=== PATIENT | male | born 1945 | race African-American/Black ===

== ENCOUNTER 2019-10-10 02:19 | Inpatient (IN) | payer MEDICARE, MEDICAID ==
[~2019-10-10] VITALS: Ht 160 cm; Wt 48.1 kg
[~2019-10-10 02:19] MED LIST: HYDROCORTISONE-30 GM TOPIC; LATANOPROST 0.7.5 ML OP; LUMIGAN2.5 ML BOTH EYES; TRUSOPT10 ML BOTH EYES
--- NOTE | 2019-10-10 02:37 | Emergency Room Report ---
History of Present Illness General Chief Complaint: Abnormal Labs Source: Patient, PMD Present Illness HPI This is 74-year-old male with a history of hepato-cellular carcinoma. Unknown staging. He also has history of HIV. Patient does not take any medication. Patient will was last 2 outpatient follow-up for year. He presents with chief complaint of weakness and hypoxia. He saw Dr. Rubio yesterday at 2 PM. He was hypoxic on room air at 83 percentile. He also complained of weakness and weight loss of 11 pounds in last week. Patient said he was short of breath then but no longer short of breath here. He had recent labs done that showed mild anemia and increasing AFP. He was told to come here for admission. Patient complained of weakness and weight loss. No nausea no vomiting. No diarrhea. Denies any fever chills but denies any cough or congestion. They made it better. Nothing made it worse. Allergies: Coded Allergies: UNABLE TO ASSESS (Unverified , 06/11/19) pt unable to remember COVID-19 Screening Contact w/high risk pt: No Recent Travel to affected area: No Experienced COVID-19 symptoms?: No Patient History Past Medical History: see triage record, old chart reviewed, HIV Past Surgical History: other Pertinent Family History: none Social History: Denies: smoking Immunizations: other Reviewed Nursing Documentation: PMH: Agreed; PSxH: Agreed Review of Systems Constitutional: Reports: weakness Eye: Denies: eye pain, blurred vision ENT: Denies: ear pain, nose congestion, throat swelling Respiratory: Denies: cough, shortness of breath Cardiovascular: Denies: chest pain, palpitations Gastrointestinal: Denies: abdominal pain, diarrhea, nausea, vomiting Musculoskeletal: Denies: back pain, joint pain Skin: Denies: rash Neurological: Denies: headache, numbness Endocrine: Denies: increased thirst, increased urine Hematologic/Lymphatic: Denies: easy bruising All Other Systems: negative except mentioned in HPI Physical Exam Vitals unremarkable Sp02 EP Interpretation: reviewed, normal General Appearance: no apparent distress, alert, thin Head: normocephalic, atraumatic Eyes: bilateral eye PERRL, bilateral eye EOMI ENT: hearing grossly normal, normal pharynx Neck: full range of motion, supple, no meningismus Respiratory: chest non-tender, lungs clear, normal breath sounds Cardiovascular #1: regular rate, rhythm, no murmur Gastrointestinal: normal bowel sounds, non tender, no mass, no organomegaly, no bruit, non-distended Musculoskeletal: back normal, normal range of motion, gait/station normal Psychiatric: mood/affect normal Medical Decision Making Diagnostic Impression: Primary Impression: Hepatocellular adenoma Additional Impression: Failure to thrive in adult ER Course Patient presents with weakness and weight loss. This is probably secondary to his recurrent of liver cancer. According to the labs from his primary care doctor's office, his AFP is increasing. CT here showed a liver mass but no mets to the lung. No pulmonary believes him. He is not hypoxic here. I discussed the case with Dr. Rubio who wanted pt to be admitted. Pt's insurance IPA approved for admission here. I discussed case with Dr. Pelaez who will admit. Rhythm Strip Diag. Results EP Interpretation: yes Rate: 88 Rhythm: NSR, no PVC's, no ectopy CT/MRI/US Diagnostic Results CT/MRI/US Diagnostic Results : Imaging Test Ordered: CT chest, abdomen and pelvis Impression Read by radiologist. CT chest showed no embolism. No acute abnormality. Severe osteopenia. Otherwise negative. CT abdomen pelvis showed liver mass measuring 3.6 and 3.7 respectively. Status: unchanged Disposition: ADMITTED INPATIENT Condition: Serious Referrals: ARNOLD HERNANDEZ (PCP) Kolton Osorio MD October 10, 2019 02:37
[2019-10-10] MEDS ORDERED: VITAMIN D32400 UNIT/ PO (02:40)
[2019-10-10] MEDS ORDERED: COMPLERA TABLE1 EACH ORAL (02:40)
[2019-10-10] MEDS ORDERED: TIVICAY50 MG ORAL (02:40)
[2019-10-10] MEDS ORDERED: VITAMIN C500 M1 ORAL (02:40)
[2019-10-10] MEDS ORDERED: VITAMIN B-12500 MC2 PO (02:40)
[2019-10-10] MEDS ORDERED: FERROUS SULFAT325 MG ORAL (02:40)
[2019-10-10 02:44] VITALS: BP 115/72
[2019-10-10 03:09] LABS: ALANINE AMINOTRANSFERASE 24 U/L (12-78); ALBUMIN 3.6 G/DL (3.4-5.0); ALBUMIN/GLOBULIN RATIO 0.7 (1.0-2.7); ALKALINE PHOSPHATASE 81 U/L (46-116); ANION GAP 7 mmol/L (5-15); BILIRUBIN,TOTAL 0.6 MG/DL (0.2-1.0); BLOOD UREA NITROGEN 19 mg/dL (7-18); CALCIUM 9.7 MG/DL (8.5-10.1); CARBON DIOXIDE 31 MMOL/L (21-32); CHLORIDE 103 MMOL/L (98-107); CREATININE 1.5 MG/DL (0.55-1.30); POTASSIUM 4.1 MMOL/L (3.5-5.1); SODIUM 141 MMOL/L (136-145)
[2019-10-10 03:10] LABS: ASPARTATE AMINO TRANSFERASE 47 U/L (15-37); BASOPHILS % (AUTO) 1.6 % (0.0-2.0); EOSINOPHILS % (AUTO) 3.3 % (0.0-3.0); HEMATOCRIT 38.5 % (42.0-52.0); HEMOGLOBIN 12.9 G/DL (14.2-18.0); LYMPHOCYTES % (AUTO) 32.3 % (20.0-45.0); MEAN CORPUSCULAR VOLUME 90 FL (80-99); MONOCYTES % (AUTO) 8.6 % (1.0-10.0); NEUTROPHILS % (AUTO) 54.2 % (45.0-75.0); PLATELET COUNT 151 K/UL (150-450); RED BLOOD COUNT 4.26 M/UL (4.70-6.10); RED CELL DISTRIBUTION WIDTH 15.6 % (11.6-14.8); WHITE BLOOD COUNT 4.3 K/UL (4.8-10.8)
[2019-10-10 08:06] VITALS: BP 121/78
[2019-10-10] MEDS: Vitamin B-12 500mcg tab ORAL SCH (08:22)
[2019-10-10] MEDS: Ascorbic Acid 500mg tab ORAL SCH (08:22)
[2019-10-10] MEDS: Dorzolamide 2% 10ml Btl BOTH EYES SCH ×3 (08:22→18:00)
--- NOTE | 2019-10-10 08:38 | Diagnostic Imaging Report ---
EXAM: CT Chest With Intravenous Contrast CLINICAL HISTORY: chest pain for four days TECHNIQUE: Axial computed tomography images of the chest with intravenous contrast. CTDI is 74 mGy and DLP is 289 mGy-cm. One or more of the following dose reduction techniques were used: automated exposure control, adjustment of the mA and/or kV according to patient size, use of iterative reconstruction technique. COMPARISON: No relevant prior studies available. FINDINGS: Lungs: Unremarkable. No mass. No consolidation. Pleural space: Unremarkable. No pneumothorax. No significant effusion. Heart: Unremarkable. No cardiomegaly. No significant pericardial effusion. Bones/joints: Severe osteopenia. No acute fracture. No dislocation. Soft tissues: Unremarkable. Vasculature: No pulmonary embolism. No thoracic aortic aneurysm. Lymph nodes: Unremarkable. No enlarged lymph nodes. Other findings: No acute abnormality identified to account for patient presentation. IMPRESSION: 1. No pulmonary embolism. 2. No acute abnormality identified to account for patient presentation. 3. Severe osteopenia. 4. Otherwise unremarkable study. EXAM: CT Abdomen and Pelvis With Intravenous Contrast CLINICAL HISTORY: chest pain for four days TECHNIQUE: Axial computed tomography images of the abdomen and pelvis with intravenous contrast. CTDI is 74 mGy and DLP is 289 mGy-cm. One or more of the following dose reduction techniques were used: automated exposure control, adjustment of the mA and/or kV according to patient size, use of iterative reconstruction technique. Coronal and sagittal reformatted images were created and reviewed. COMPARISON: No relevant prior studies available. FINDINGS: Lung bases: Unremarkable. No mass. No consolidation. ABDOMEN: Liver: Hepatic segment VII mass with adjacent hypodense potentially subcapsular location somewhat indeterminate mass measuring 3.6 and 3.7 cm respectively. Recommend MRI abdomen without and with IV contrast to further characterize hepatic masses. Gallbladder and bile ducts: Unremarkable. No calcified stones. No ductal dilation. Pancreas: Unremarkable. No mass. No ductal dilation. Spleen: Unremarkable. No splenomegaly. Adrenals: Unremarkable. No mass. Kidneys and ureters: Unremarkable. No solid mass. No hydronephrosis. Stomach and bowel: Large colonic fecal burden and small bowel fecal contents, which could be incidental or could represent a manifestation of slow intestinal transit. This could be a cause for pain. No mucosal thickening. PELVIS: Appendix: No findings to suggest acute appendicitis. Bladder: Urinary bladder distention and wall thickening. This could be incidental, correlate clinically to exclude infectious or inflammatory cystitis. Reproductive: Unremarkable as visualized. ABDOMEN and PELVIS: Intraperitoneal space: Unremarkable. No free air. No significant fluid collection. Bones/joints: Severe osteopenia. No acute fracture. No dislocation. Soft tissues: Unremarkable. Vasculature: Atherosclerotic vascular disease. No abdominal aortic aneurysm. Lymph nodes: Unremarkable. No enlarged lymph nodes. IMPRESSION: 1. Urinary bladder distention and wall thickening. This could be incidental, correlate clinically to exclude infectious or inflammatory cystitis. 2. Large colonic fecal burden and small bowel fecal contents, which could be incidental or could represent a manifestation of slow intestinal transit. This could be a cause for pain. 3. Hepatic segment VII mass with adjacent hypodense potentially subcapsular location somewhat indeterminate mass measuring 3.6 and 3.7 cm respectively. 4. Recommend MRI abdomen without and with IV contrast to further characterize hepatic masses. 5. Recommend correlation with age appropriate screening exams. 6. Severe osteopenia.
[2019-10-10 12:00] VITALS: BP 116/73
[2019-10-10] MEDS: 1/2NS w/KCl 20mEq 1000ml 1,000 ML IV SCH (14:36)
[2019-10-10 16:10] VITALS: BP 125/83
[2019-10-10] MEDS: DOLUTEGRAVIR SODIUM 50 MG ORAL SCH (16:57)
[2019-10-10] MEDS: DESCOVY 200MG/25MG ORAL SCH (17:55)
--- NOTE | 2019-10-10 18:30 | History and Physical Report ---
DATE OF ADMISSION: 10/10/2019 HISTORY OF PRESENT ILLNESS: This is a 74-year-old male with a history of HIV positivity. He also has known hepatocellular carcinoma. Patient admitted to the hospital with failure to thrive. He is weak and hypoxic. He was seen by his primary care physician, noted to be hypoxic. He was advised admission. Patient reports significant weight loss. PAST MEDICAL HISTORY: Notable for HIV positivity, history of hepatocellular carcinoma. SOCIAL HISTORY: No history of alcohol or tobacco usage. HOME MEDICATIONS: Reviewed and reconciled in the chart. REVIEW OF SYSTEMS: Denies any headaches, hematemesis, melena, or hematochezia. Admits to having unspecified weight loss. PHYSICAL EXAMINATION: GENERAL: Reveals a 74-year-old male, appearing cachectic. VITAL SIGNS: Blood pressure is 116/70, heart rate is 74, respirations 20, he is afebrile. CHEST: Clear breath sounds. ABDOMEN: Soft. NEUROLOGIC: Nonfocal. LABORATORY DATA: Lab testing shows white count 4.3, hemoglobin 12.9. Creatinine 1.5. AST 47. IMAGING STUDIES: A CT of the chest, abdomen, pelvis was obtained overnight, which shows unremarkable pulmonary parenchyma, severe osteopenia. There is no pulmonary embolism. He has evidence of colonic burden with stool. There is evidence of a hepatic mass. IMPRESSION: 1. Failure to thrive. 2. HIV. 3. Hepatocellular carcinoma. 4. Constipation. DISCUSSION: Admit to the hospital. Consult Hematology-Oncology as well as GI. Continue current medications and care. Provide IV hydration and diet. We will follow carefully. Efrem Pelaez M.D. DR: ANAM JOB#: [id number] CC:
[2019-10-10 20:00] VITALS: BP 110/70
[2019-10-10] MEDS: Latanoprost 0.005% Opth 2.5ml Soln BOTH EYES SCH (20:28)
[2019-10-11 04:00] VITALS: BP 118/74
[2019-10-11] MEDS ORDERED: Gadavist 7.5mMol/7.5ml vial IV PRN (06:11)
[2019-10-11 08:00] VITALS: BP 121/77
[2019-10-11] MEDS: Dorzolamide 2% 10ml Btl BOTH EYES SCH ×3 (08:17→18:17)
[2019-10-11] MEDS: DOLUTEGRAVIR SODIUM 50 MG ORAL SCH (08:18)
[2019-10-11] MEDS: DESCOVY 200MG/25MG ORAL SCH (08:18)
--- NOTE | 2019-10-11 10:45 | Pulmonology Progress Note ---
Subjective Interval Events: Feeling better Constitutional: Reports: no symptoms HEENT: Repors: no symptoms Respiratory: Reports: no symptoms Cardiovascular: Reports: no symptoms Gastrointestinal/Abdominal: Reports: no symptoms Allergies: Coded Allergies: No Known Allergies (Unverified , 10/10/19) Objective Last 24 Hour Vital Signs Date Time Temp Pulse Resp B/P (MAP) Pulse Ox O2 Delivery O2 Flow Rate FiO2 10/11/19 09:00 Room Air 10/11/19 08:00 98.1 65 20 121/77 (92) 97 10/11/19 04:00 97.8 61 18 118/74 (89) 100 10/10/19 20:07 Room Air 10/10/19 20:00 98.0 66 18 110/70 (83) 97 10/10/19 16:10 98.0 64 20 125/83 (97) 99 10/10/19 12:00 98.2 74 19 116/73 (87) 99 Intake and Output 10/10/19 10/11/19 18:59 06:59 Intake Total 700 ml Balance 700 ml Intake Oral 500 ml IV Total 200 ml # Voids 3 # Bowel Movements 1 General Appearance: no acute distress HEENT: normocephalic Respiratory: chest wall non-tender Cardiovascular: normal peripheral pulses Abdomen: normal bowel sounds Current Medications Medications (Trade) Dose Ordered Sig/Lia Route PRN Reason Start Time Stop Time Status Last Admin Dose Admin Acetaminophen (Tylenol) 650 mg Q6H PRN ORAL For Headache 10/10/19 04:00 11/09/19 03:59 Acetaminophen (Tylenol) 650 mg Q6H PRN ORAL Temp >100.5 10/10/19 04:00 11/09/19 03:59 Ascorbic Acid (Vitamin C) 500 mg DAILY ORAL 10/10/19 09:00 11/09/19 08:59 10/10/19 08:22 Cyanocobalamin (Vitamin B-12) 500 mcg DAILY ORAL 10/10/19 09:00 11/09/19 08:59 10/10/19 08:22 Dorzolamide HCl (Trusopt) 1 drop TID BOTH EYES 10/10/19 09:00 11/09/19 08:59 10/11/19 08:17 Ferrous Sulfate (Feosol) 325 mg DAILY ORAL 10/10/19 09:00 01/08/20 08:59 10/10/19 08:22 Gadobutrol (Gadavist) 7.5 mmol ONCE PRN IV RADIOLOGY 10/11/19 06:11 10/11/19 23:59 Latanoprost (Xalatan) 1 drop BEDTIME BOTH EYES 10/10/19 21:00 11/09/19 20:59 Patient Own Medication (Patient's Own Med) 1 ea DAILY ORAL 10/10/19 16:00 11/09/19 15:59 10/11/19 08:18 Patient Own Medication (Patient's Own Med) 1 ea DAILY ORAL 10/10/19 18:00 11/09/19 17:59 10/11/19 08:18 Sodium 1,000 ml @ 50 mls/hr Q20H IV 10/10/19 14:30 11/09/19 14:29 10/10/19 14:36 Vitamin D (Vitamin D) 2,000 intlu DAILY ORAL 10/11/19 09:00 11/10/19 08:59 Assessment/Plan Assessment/Plan IMPRESSION: 1. Failure to thrive. 2. HIV. 3. Hepatocellular carcinoma. 4. Constipation. DISCUSSION: Await Hematology-Oncology consultation as well as GI. Continue current medications and care. Provide IV hydration and diet. I will follow carefully. MRI abd today Calorie count Efrem Pelaze M.D. Efrem Pelaez MD October 11, 2019 10:45
[2019-10-11] MEDS: Ascorbic Acid 500mg tab ORAL SCH (10:59)
[2019-10-11] MEDS: 1/2NS w/KCl 20mEq 1000ml 1,000 ML IV SCH (10:59)
[2019-10-11] MEDS: Vitamin B-12 500mcg tab ORAL SCH (10:59)
[2019-10-11] MEDS: Vitamin D 1000 IU Tab ORAL SCH (11:00)
[2019-10-11 12:00] VITALS: BP 131/83
--- NOTE | 2019-10-11 12:04 | Consultation ---
History of Present Illness General Chief Complaint: Abnormal Labs Present Illness Allergies: Coded Allergies: No Known Allergies (Unverified , 10/10/19) Medication History Scheduled Ascorbic Acid* (Vitamin C*), 500 MG ORAL DAILY, (Reported) Cholecalciferol (Vitamin D3) (Vitamin D3), 1,000 UNIT PO DAILY, (Reported) Cyanocobalamin (Vitamin B-12) (Vitamin B-12), 500 MCG PO DAILY, (Reported) Dolutegravir Sodium (Tivicay), 50 MG ORAL DAILY, (Reported) Dorzolamide Hcl* (Trusopt*), 1 DROP BOTH EYES TID, (Reported) Emtricitab/Rilpivirine/Tenofov (Complera Tablet), 1 TAB ORAL DAILY, (Reported) Ferrous Sulfate* (Ferrous Sulfate*), 325 MG ORAL DAILY, (Reported) Miscellaneous Medications Latanoprost/Pf (Latanoprost 0.005% Eye Drop), 7.5 ML OP, (Reported) Discontinued Medications Bimatoprost (Lumigan), 1 DROP BOTH EYES DAILY, (Reported) Discontinued Reason: MD discontinued med Hydrocortisone/Aloe (Hydrocortisone/Aloe 1% Cream*), 1 APPLIC TOPIC Q6H PRN for Itching Discontinued Reason: Pt had allergic rxn Patient History Healthcare decision maker Resuscitation status Advanced Directive on File Physical Exam Last 24 Hour Vital Signs Date Time Temp Pulse Resp B/P (MAP) Pulse Ox O2 Delivery O2 Flow Rate FiO2 10/11/19 09:00 Room Air 10/11/19 08:00 98.1 65 20 121/77 (92) 97 10/11/19 04:00 97.8 61 18 118/74 (89) 100 10/10/19 20:07 Room Air 10/10/19 20:00 98.0 66 18 110/70 (83) 97 10/10/19 16:10 98.0 64 20 125/83 (97) 99 Intake and Output 10/10/19 10/11/19 19:00 07:00 Intake Total 700 ml Balance 700 ml Intake Oral 500 ml IV Total 200 ml # Voids 3 # Bowel Movements 1 Height (Feet): 5 Height (Inches): 3.00 Weight (Pounds): 105 Medications Current Medications Medications (Trade) Dose Ordered Sig/Lia Route PRN Reason Start Time Stop Time Status Last Admin Dose Admin Acetaminophen (Tylenol) 650 mg Q6H PRN ORAL For Headache 10/10/19 04:00 11/09/19 03:59 Acetaminophen (Tylenol) 650 mg Q6H PRN ORAL Temp >100.5 10/10/19 04:00 11/09/19 03:59 Ascorbic Acid (Vitamin C) 500 mg DAILY ORAL 10/10/19 09:00 11/09/19 08:59 10/11/19 10:59 Cyanocobalamin (Vitamin B-12) 500 mcg DAILY ORAL 10/10/19 09:00 11/09/19 08:59 10/11/19 10:59 Dorzolamide HCl (Trusopt) 1 drop TID BOTH EYES 10/10/19 09:00 11/09/19 08:59 10/11/19 08:17 Ferrous Sulfate (Feosol) 325 mg DAILY ORAL 10/10/19 09:00 01/08/20 08:59 10/11/19 11:00 Gadobutrol (Gadavist) 7.5 mmol ONCE PRN IV RADIOLOGY 10/11/19 06:11 10/11/19 23:59 Latanoprost (Xalatan) 1 drop BEDTIME BOTH EYES 10/10/19 21:00 11/09/19 20:59 Patient Own Medication (Patient's Own Med) 1 ea DAILY ORAL 10/10/19 16:00 11/09/19 15:59 10/11/19 08:18 Patient Own Medication (Patient's Own Med) 1 ea DAILY ORAL 10/10/19 18:00 11/09/19 17:59 10/11/19 08:18 Sodium 1,000 ml @ 50 mls/hr Q20H IV 10/10/19 14:30 11/09/19 14:29 10/11/19 10:59 Vitamin D (Vitamin D) 2,000 intlu DAILY ORAL 10/11/19 09:00 11/10/19 08:59 10/11/19 11:00 Assessment/Plan Assessment/Plan: Oncology Consultaiton ZEINAB MOTA: Efrem Pelaez C: HCC DOS 10/11/2019 HPI This is 74-year-old male with a history of hepato-cellular carcinoma. Unknown staging. He also has history of HIV. Patient does not take any medication. Patient will was last 2 outpatient follow-up for year. He presents with chief complaint of weakness and hypoxia. He saw Dr. Rubio yesterday at 2 PM. He was hypoxic on room air at 83 percentile. He also complained of weakness and weight loss of 11 pounds in last week. Patient said he was short of breath then but no longer short of breath here. He had recent labs done that showed mild anemia and increasing AFP. He was told to come here for admission. Patient complained of weakness and weight loss. No nausea no vomiting. No diarrhea. Denies any fever chills but denies any cough or congestion. They made it better. Nothing made it worse. At this time have ordered for mri and and afp as well, have dw ER. Allergies: UNABLE TO ASSESS (Unverified , 06/11/19) pt unable to remember COVID-19 Screening Contact w/high risk pt: No Recent Travel to affected area: No Experienced COVID-19 symptoms?: No Past Medical History: see triage record, old chart reviewed, HIV Past Surgical History: other Pertinent Family History: none Social History: Denies: smoking Immunizations: other Reviewed Nursing Documentation: PMH: Agreed; PSxH: Agreed ROS (review of systems): Constitutional: No fever, no chills, no night sweats, no fatigue Skin: No rashes, lumps, itchiness, dryness HEENT: No ALICEA, ear ache, visual changes, double vision, nosebleeds Breasts: No lumps, pain, discharge Pulmonary: No cough, sputum, shortness of breath, coughing up blood Cardiovascular: No chest pain, tightness, palpitations, syncope, PND GI: No nausea, vomiting, diarrhea, melena, hematochezia, change in appetite, : No dysuria, frequency, urgency, urinary incontinence, foamy urine Musculoskeletal: No joint swelling or muscle pain, trauma, back pain Neurologic: No dizziness, fainting, seizures, changes in smell or taste Psychiatric: No nervousness, stress, or depression, anxiety, hallucinations Endocrine: No weight change, heat or cold intolerance, tremor, insomnia Physical Exam: Vitals: reviewed General: NAD HEENT: nc, at Neck: supple Chest: clear breath sounds bilaterally Cardiovascular: RRR, no s3, s4 Abdomen: soft, nontender, nd Extremities: no cce, normal range of motion Neuro: alert and oriented Labs reviewed Imaging: reviewed Assessment and Recs # Hepatocellular carcinoma -- with a increasing afp recently --> obtain outside medical information in re to patients hcc --> obtain imaging of the abd to confirm the mass --> AFP has been ordered # Failure to thrive in adult --> likely due to ocmination of malignancy and potential rx --> r/o infectious etiology --> nutirtional support --> again needs outpatient management of malignancy, has had significant weight loss recenyly # Leukopenia very likely related to liver involvement --> hep and hiv ordered --> imaging abd # Anemia of chronic disease # Dvt ppx scds The timing of this note does not necessarily reflect the time of the patient was seen. Greatly appreciate consultation. Romaine Eirckson MD October 11, 2019 12:04
[2019-10-11 16:00] VITALS: BP 115/70
--- NOTE | 2019-10-11 17:00 | Consultation ---
DATE OF CONSULTATION: 10/11/2019 INFECTIOUS DISEASES CONSULTATION CONSULTING PHYSICIAN: Gianni Garg MD REFERRING PHYSICIAN: Efrem Pelaez MD. REASON FOR CONSULTATION: HIV and possible sepsis. HISTORY OF PRESENTING ILLNESS: This is a 74-year-old gentleman with history of HIV, hepatocellular carcinoma status post chemotherapy, who comes in because of weakness and failure to thrive. There was a concern for cholangitis and an Infectious Diseases consultation has been obtained for antibiotics. PAST MEDICAL HISTORY: 1. History of HIV. 2. History of hepatocellular carcinoma. MEDICATIONS: As an inpatient, he is on vitamin D, , Xalatan drops, sodium, ascorbic acid, Trusopt, ferrous sulfate, cyanocobalamin, Tylenol. ALLERGIES: No known drug allergies. SOCIAL HISTORY: He used to be a smoker. He does not smoke anymore. He drinks alcohol socially. He smokes marijuana. FAMILY HISTORY: Unknown. REVIEW OF SYSTEMS: RESPIRATORY: No fever, chills, cough, shortness of breath, or chest pain. CARDIAC: No chest pain. No palpitation. No dizziness. No syncope. GASTROINTESTINAL: No nausea. No vomiting. No abdominal pain. No diarrhea. PHYSICAL EXAMINATION: VITAL SIGNS: Temperature of 98.1, T-max of 98.1, pulse of 65, respiratory rate 22, blood pressure 121/77, O2 saturation of 97%. HEENT: Pupils equally reactive to light and accommodation. Mouth appears clean without thrush. NECK: Supple. No adenopathy. No JVD. CARDIOVASCULAR: Regular rate and rhythm. No murmurs. LUNGS: Clear to auscultation bilaterally. No crackles. No wheezes. ABDOMEN: Soft and nontender. No organomegaly. EXTREMITIES: No cyanosis, no clubbing, no edema. LABORATORY AND DIAGNOSTIC DATA: White count 4.3, hemoglobin 12.9, hematocrit 38.5, MCV 90, platelet count of 151, neutrophils of 54.2. Sodium 141, potassium 4.1, chloride 103, bicarb 31, BUN 19, creatinine 1.5, glucose 101, calcium 9.7. Total bilirubin 0.6, AST 47, ALT 24, alkaline phosphatase 81, total protein 8.5, albumin 3.6. CT chest, abdomen and pelvis showing no pulmonary embolism, otherwise unremarkable study. ASSESSMENT: 1. This is a 74-year-old gentleman with history of HIV and hepatocellular carcinoma, who comes in with weakness and failure to thrive, would like to rule out cholangitis as a possibility. 2. Hepatocellular carcinoma. 3. History of HIV. PLAN: 1. We will order blood cultures. 2. Continue off antibiotics for now. 3. We will follow up MRI of the abdomen. I would like to thank, Dr. Pelaez, for this consultation. Gianni Garg M.D. DR: Juan C JOB#: [id number] CC: Efrem Pelaez M.D.; Fax#: [phone]
--- NOTE | 2019-10-11 17:04 | Diagnostic Imaging Report ---
Indication: Reason For Exam: MASS Technique: Axial single shot fast spin echo breath hold, coronal single shot fast spin-echo breath hold, axial T2 FRFSE fat-saturated, 2-D thick slab MRCP, axial 2-D FIESTA fat-saturated, axial 3-D dual echo breath-hold, precontrast axial and postcontrast axial water weighted axial LAVA FLEX images of the abdomen Comparison: Reference made to abdomen pelvis CT scan 10/10/2019 Findings: In segment 7 of the liver, there is a posterior peripheral lesion which measures approximately 3.7 cm transverse by 3.4 cm AP by 3.5 cm craniocaudad. This demonstrates mildly increased T2 signal, decreased T1 signal. This demonstrates enhancement on the postcontrast images. However, there is only minimal peripheral enhancement on the early arterial phase images, and mild central and septal enhancement with areas of nonenhancement on the later images without dramatically rapid are intense increase or washout. There is questionably some normal hepatic elements coursing through it on a few of the T2 sequences There is an extrahepatic lesion immediately adjacent to this which measures 3.4 x 2.6 x 3.7 cm. This demonstrates high T1 signal and low T2 signal and no enhancement. No other liver lesions are demonstrated. The gallbladder is unremarkable. No biliary ductal dilatation or biliary filling defects The pancreatic duct is unremarkable The pancreas, spleen, adrenals are unremarkable. Multiple renal cysts are demonstrated bilaterally. No definite pelvic mass or adenopathy. Impression: 3.7 x 3.4 x 3.5 cm lesion in the right hepatic lobe, segment 7, correlates with findings on recent CT scan, demonstrates nonspecific signal and enhancement characteristics. Given stated clinical history of hepatocellular carcinoma and elevated alpha-fetoprotein, this most likely represents a somewhat atypical hepatocellular carcinoma. Differential considerations include metastatic disease. Given questionable presence of normal hepatic structures within this on a few the T2 sequences, the possibly that this represents an atypical focal nodular hyperplasia should also be considered. Abscess deemed much less likely differential consideration 3.4 x 2.6 x 3.7 cm nonenhancing extrahepatic lesion immediately adjacent to the above. Signal characteristics most likely suggest an old hematoma, possibly due to bleeding by the above. No evidence of biliary ductal dilatation, filling defects, or gallstones Incidental finding of renal cysts bilaterally
[2019-10-11 20:00] VITALS: BP 131/79
--- NOTE | 2019-10-11 21:50 | General Progress Note ---
Assessment/Plan Assessment/Plan: Assessment - Failure to thrive, poor po, weight loss - HIV (+), need to check CD4 count to stage immune state - Hepatocellular CA since 2016, s/p microwave ablation 09/2016 with initial good response - Recent rise in AFP to 1080 in September 2019 at [facility], c/w recurrence of tumor - h/o chronic hep C, genotype 1a, s/p eradication 2015, but with ultimate cirrhotic change with Metavir F2-F4 fibrosis Recommendations - Oncology opinion re HCC - appetite stimulant - check T cells - push po - d/c PO Fe as it can typically cause nausea - PPI Subjective Allergies: Coded Allergies: No Known Allergies (Unverified , 10/10/19) Objective Last 24 Hour Vital Signs Date Time Temp Pulse Resp B/P (MAP) Pulse Ox O2 Delivery O2 Flow Rate FiO2 10/11/19 16:00 98.0 78 20 115/70 (85) 97 10/11/19 12:00 98.4 64 20 131/83 (99) 97 10/11/19 09:00 Room Air 10/11/19 08:00 98.1 65 20 121/77 (92) 97 10/11/19 04:00 97.8 61 18 118/74 (89) 100 Intake and Output 10/10/19 10/11/19 19:00 07:00 Intake Total 700 ml Balance 700 ml Intake Oral 500 ml IV Total 200 ml # Voids 3 # Bowel Movements 1 Laboratory Tests 10/11/19 00:00: HIV-1 Antibody [Pending], HIV-2 Antibody [Pending] 10/11/19 12:30: Alpha Fetoprotein [Pending], Hepatitis A IgM Antibody [Pending], Hepatitis B Surface Antigen [Pending], Hepatitis B Core IgM Antibody [Pending], Hepatitis C Antibody [Pending], HIV (1&2) Antibody Rapid Preliminary positiveH Height (Feet): 5 Height (Inches): 3.00 Weight (Pounds): 105 Sherley Powell MD October 11, 2019 21:50
[2019-10-11] MEDS: Latanoprost 0.005% Opth 2.5ml Soln BOTH EYES SCH (21:59)
[2019-10-12] VITALS: BP 122/78
[2019-10-12 04:00] VITALS: BP_SYST 112; BP_SYST 133; BP_DIAS 73; BP_DIAS 76
[2019-10-12] MEDS: 1/2NS w/KCl 20mEq 1000ml 1,000 ML IV SCH (05:34)
[2019-10-12 05:47] LABS: BASOPHILS % (AUTO) 1.5 % (0.0-2.0); EOSINOPHILS % (AUTO) 2.7 % (0.0-3.0); HEMATOCRIT 37.8 % (42.0-52.0); LYMPHOCYTES % (AUTO) 36.5 % (20.0-45.0); MEAN CORPUSCULAR VOLUME 85 FL (80-99); MONOCYTES % (AUTO) 10.3 % (1.0-10.0); NEUTROPHILS % (AUTO) 49.1 % (45.0-75.0); PLATELET COUNT 148 K/UL (150-450); RED BLOOD COUNT 4.45 M/UL (4.70-6.10); RED CELL DISTRIBUTION WIDTH 13.8 % (11.6-14.8)
[2019-10-12 06:10] LABS: ANION GAP 4 mmol/L (5-15); BLOOD UREA NITROGEN 21 mg/dL (7-18); CALCIUM 9.4 MG/DL (8.5-10.1); CARBON DIOXIDE 31 MMOL/L (21-32); CHLORIDE 103 MMOL/L (98-107); CREATININE 1.4 MG/DL (0.55-1.30); POTASSIUM 4.5 MMOL/L (3.5-5.1); SODIUM 138 MMOL/L (136-145)
--- NOTE | 2019-10-12 07:59 | Hematology/Onc Progress Note ---
Assessment/Plan Assessment/Plan Assessment and Recs # Hepatocellular carcinoma -- with a increasing afp recently --> obtain outside medical information in re to patients hcc --> obtain imaging of the abd to confirm the mass --> AFP ordered, results pending --> 10/10 mri abd: 3.7 x 3.4 x 3.5 cm lesion in the right hepatic lobe, segment 7 , # Failure to thrive in adult --> likely due to ocmination of malignancy and potential rx --> r/o infectious etiology --> nutritional support --> again needs outpatient management of malignancy, has had significant weight loss recently # Leukopenia very likely related to liver involvement --> hep panel negative --> prelim-hiv positive --> imaging abd reviewed # Anemia of chronic disease --> hgb currently stable # Dvt ppx scds The timing of this note does not necessarily reflect the time of the patient was seen. Greatly appreciate consultation. Subjective Allergies: Coded Allergies: No Known Allergies (Unverified , 10/10/19) Subjective 10/11 alert, mri abd reviewed, room air, labs reviewed Objective Objective Current Medications Medications (Trade) Dose Ordered Sig/Lia Route PRN Reason Start Time Stop Time Status Last Admin Dose Admin Acetaminophen (Tylenol) 650 mg Q6H PRN ORAL For Headache 10/10/19 04:00 11/09/19 03:59 Acetaminophen (Tylenol) 650 mg Q6H PRN ORAL Temp >100.5 10/10/19 04:00 11/09/19 03:59 Ascorbic Acid (Vitamin C) 500 mg DAILY ORAL 10/10/19 09:00 11/09/19 08:59 10/11/19 10:59 Cyanocobalamin (Vitamin B-12) 500 mcg DAILY ORAL 10/10/19 09:00 11/09/19 08:59 10/11/19 10:59 Dorzolamide HCl (Trusopt) 1 drop TID BOTH EYES 10/10/19 09:00 11/09/19 08:59 10/11/19 18:17 Latanoprost (Xalatan) 1 drop BEDTIME BOTH EYES 10/10/19 21:00 11/09/19 20:59 10/11/19 21:59 Oxandrolone (Oxandrin) 2.5 mg THREE TIMES A DAY ORAL 5/30/20 09:00 01/10/20 08:59 Future Hold Pantoprazole (Protonix) 40 mg DAILY ORAL 10/12/19 09:00 11/11/19 08:59 Patient Own Medication (Patient's Own Med) 1 ea DAILY ORAL 10/10/19 16:00 11/09/19 15:59 10/11/19 08:18 Patient Own Medication (Patient's Own Med) 1 ea DAILY ORAL 10/10/19 18:00 11/09/19 17:59 10/11/19 08:18 Sodium 1,000 ml @ 50 mls/hr Q20H IV 10/10/19 14:30 11/09/19 14:29 10/12/19 05:34 Vitamin D (Vitamin D) 2,000 intlu DAILY ORAL 10/11/19 09:00 11/10/19 08:59 10/11/19 11:00 Last 24 Hour Vital Signs Date Time Temp Pulse Resp B/P (MAP) Pulse Ox O2 Delivery O2 Flow Rate FiO2 10/12/19 04:00 98.0 66 20 133/76 (95) 99 10/12/19 00:00 98.5 73 18 122/78 (93) 99 10/11/19 21:00 Room Air 10/11/19 21:00 Room Air 10/11/19 20:00 98.1 73 18 131/79 (96) 98 10/11/19 16:00 98.0 78 20 115/70 (85) 97 10/11/19 12:00 98.4 64 20 131/83 (99) 97 10/11/19 09:00 Room Air 10/11/19 08:00 98.1 65 20 121/77 (92) 97 10/11/19 04:00 97.8 61 18 118/74 (89) 100 10/10/19 20:07 Room Air 10/10/19 20:00 98.0 66 18 110/70 (83) 97 10/10/19 16:10 98.0 64 20 125/83 (97) 99 10/10/19 12:00 98.2 74 19 116/73 (87) 99 10/10/19 08:06 97.9 61 18 121/78 (92) 99 Intake and Output 10/11/19 10/12/19 19:00 07:00 Intake Total 400 ml 150 ml Balance 400 ml 150 ml Intake Oral 400 ml 0 ml IV Total 150 ml # Voids 4 3 Labs Test 10/10/19 00:25 10/11/19 00:00 10/11/19 12:30 10/12/19 04:45 White Blood Count 4.3 K/UL (4.8-10.8) 4.0 K/UL (4.8-10.8) Red Blood Count 4.26 M/UL (4.70-6.10) 4.45 M/UL (4.70-6.10) Hemoglobin 12.9 G/DL (14.2-18.0) 13.0 G/DL (14.2-18.0) Hematocrit 38.5 % (42.0-52.0) 37.8 % (42.0-52.0) Mean Corpuscular Volume 90 FL (80-99) 85 FL (80-99) Mean Corpuscular Hemoglobin 30.2 PG (27.0-31.0) 29.2 PG (27.0-31.0) Mean Corpuscular Hemoglobin Concent 33.4 G/DL (32.0-36.0) 34.3 G/DL (32.0-36.0) Red Cell Distribution Width 15.6 % (11.6-14.8) 13.8 % (11.6-14.8) Platelet Count 151 K/UL (150-450) 148 K/UL (150-450) Mean Platelet Volume 6.9 FL (6.5-10.1) 5.7 FL (6.5-10.1) Neutrophils (%) (Auto) 54.2 % (45.0-75.0) 49.1 % (45.0-75.0) Lymphocytes (%) (Auto) 32.3 % (20.0-45.0) 36.5 % (20.0-45.0) Monocytes (%) (Auto) 8.6 % (1.0-10.0) 10.3 % (1.0-10.0) Eosinophils (%) (Auto) 3.3 % (0.0-3.0) 2.7 % (0.0-3.0) Basophils (%) (Auto) 1.6 % (0.0-2.0) 1.5 % (0.0-2.0) Sodium Level 141 MMOL/L (136-145) 138 MMOL/L (136-145) Potassium Level 4.1 MMOL/L (3.5-5.1) 4.5 MMOL/L (3.5-5.1) Chloride Level 103 MMOL/L (98-107) 103 MMOL/L (98-107) Carbon Dioxide Level 31 MMOL/L (21-32) 31 MMOL/L (21-32) Anion Gap 7 mmol/L (5-15) 4 mmol/L (5-15) Blood Urea Nitrogen 19 mg/dL (7-18) 21 mg/dL (7-18) Creatinine 1.5 MG/DL (0.55-1.30) 1.4 MG/DL (0.55-1.30) Estimat Glomerular Filtration Rate 55.8 mL/min (>60) > 60 mL/min (>60) Glucose Level 101 MG/DL (74-106) 77 MG/DL (74-106) Calcium Level 9.7 MG/DL (8.5-10.1) 9.4 MG/DL (8.5-10.1) Total Bilirubin 0.6 MG/DL (0.2-1.0) Aspartate Amino Transf (AST/SGOT) 47 U/L (15-37) Alanine Aminotransferase (ALT/SGPT) 24 U/L (12-78) Alkaline Phosphatase 81 U/L (46-116) Total Protein 8.5 G/DL (6.4-8.2) Albumin 3.6 G/DL (3.4-5.0) Globulin 4.9 g/dL Albumin/Globulin Ratio 0.7 (1.0-2.7) Hepatitis A IgM Antibody Negative (Negative) Hepatitis B Surface Antigen Negative (Negative) Hepatitis B Core IgM Antibody Negative (Negative) Hepatitis C Antibody >11.0 s/co ratio HIV (1&2) Antibody Rapid Preliminary positive Height (Feet): 5 Height (Inches): 3.00 Weight (Pounds): 106 Objective Physical Exam: Vitals: reviewed General: NAD HEENT: nc, at Neck: supple Chest: clear breath sounds bilaterally Cardiovascular: RRR, no s3, s4 Abdomen: soft, nontender, nd Extremities: no cce, normal range of motion Neuro: alert and oriented Romaine Erickson MD October 12, 2019 07:59
[2019-10-12 08:00] VITALS: BP 130/83
[2019-10-12] MEDS: DESCOVY 200MG/25MG ORAL SCH (08:43)
[2019-10-12] MEDS: DOLUTEGRAVIR SODIUM 50 MG ORAL SCH (08:43)
[2019-10-12] MEDS: Vitamin D 1000 IU Tab ORAL SCH (08:43)
[2019-10-12] MEDS: Dorzolamide 2% 10ml Btl BOTH EYES SCH ×3 (08:43→18:00)
[2019-10-12] MEDS: Ascorbic Acid 500mg tab ORAL SCH (08:43)
[2019-10-12] MEDS: Vitamin B-12 500mcg tab ORAL SCH (08:44)
[2019-10-12] MEDS ORDERED: OXANDROLONE ORAL SCH ×2 (09:00)
--- NOTE | 2019-10-12 09:04 | General Progress Note ---
Assessment/Plan Assessment/Plan: Assessment - Failure to thrive, poor po, weight loss - HIV (+), need to check CD4 count to stage immune state - Hepatocellular CA since 2016, s/p microwave ablation 09/2016 with initial good response - Recent rise in AFP to 1080 in September 2019 at [facility], c/w recurrence of tumor - h/o chronic hep C, genotype 1a, s/p eradication 2015, but with ultimate cirrhotic change with Metavir F2-F4 fibrosis Recommendations - Oncology opinion re HCC - appetite stimulant - check T cells - push po -MRI and CT reviewed - PPI Subjective ROS Limited/Unobtainable: Yes Allergies: Coded Allergies: No Known Allergies (Unverified , 10/10/19) Objective Last 24 Hour Vital Signs Date Time Temp Pulse Resp B/P (MAP) Pulse Ox O2 Delivery O2 Flow Rate FiO2 10/12/19 08:00 97.0 81 21 130/83 (99) 99 10/12/19 04:00 98.0 66 20 133/76 (95) 99 10/12/19 00:00 98.5 73 18 122/78 (93) 99 10/11/19 21:00 Room Air 10/11/19 21:00 Room Air 10/11/19 20:00 98.1 73 18 131/79 (96) 98 10/11/19 16:00 98.0 78 20 115/70 (85) 97 10/11/19 12:00 98.4 64 20 131/83 (99) 97 Intake and Output 10/11/19 10/12/19 19:00 07:00 Intake Total 400 ml 150 ml Balance 400 ml 150 ml Intake Oral 400 ml 0 ml IV Total 150 ml # Voids 4 3 Laboratory Tests 10/11/19 12:30: Alpha Fetoprotein [Pending], Hepatitis A IgM Antibody Negative, Hepatitis B Surface Antigen Negative, Hepatitis B Core IgM Antibody Negative, Hepatitis C Antibody >11.0H, HIV (1&2) Antibody Rapid Preliminary positiveH 10/12/19 04:45: White Blood Count [Pending], Red Blood Count 4.45L, Hemoglobin 13.0L, Hematocrit 37.8L, Mean Corpuscular Volume 85, Mean Corpuscular Hemoglobin 29.2, Mean Corpuscular Hemoglobin Concent 34.3, Red Cell Distribution Width 13.8, Platelet Count 148L, Mean Platelet Volume 5.7L, Neutrophils (%) (Auto) 49.1, Lymphocytes (%) (Auto) 36.5, Monocytes (%) (Auto) 10.3H, Eosinophils (%) (Auto) 2.7, Basophils (%) (Auto) 1.5, Lymphocytes [Pending], Sodium Level 138, Potassium Level 4.5, Chloride Level 103, Carbon Dioxide Level 31, Anion Gap 4L, Blood Urea Nitrogen 21H, Creatinine 1.4H, Estimat Glomerular Filtration Rate > 60, Glucose Level 77, Calcium Level 9.4, Percent CD3 Cells [Pending], Absolute CD3 Count [Pending], Percent CD4 Cells [Pending], Absolute CD4 Count [Pending], T-Lymphocyte CD4/CD8 Ratio [Pending], Percent CD8 Cells [Pending], Absolute CD8 Count [Pending] Height (Feet): 5 Height (Inches): 3.00 Weight (Pounds): 106 General Appearance: no apparent distress EENT: normal ENT inspection Neck: supple Cardiovascular: normal rate Respiratory/Chest: decreased breath sounds Abdomen: normal bowel sounds, non tender, soft Extremities: non-tender Patricio Jeter MD October 12, 2019 09:04
--- NOTE | 2019-10-12 09:12 | Pulmonology Progress Note ---
Subjective ROS Limited/Unobtainable: Yes Interval Events: Feeling better Constitutional: Reports: no symptoms HEENT: Repors: no symptoms Respiratory: Reports: no symptoms Cardiovascular: Reports: no symptoms Gastrointestinal/Abdominal: Reports: no symptoms Allergies: Coded Allergies: No Known Allergies (Unverified , 10/10/19) Objective Last 24 Hour Vital Signs Date Time Temp Pulse Resp B/P (MAP) Pulse Ox O2 Delivery O2 Flow Rate FiO2 10/12/19 08:00 97.0 81 21 130/83 (99) 99 10/12/19 04:00 98.0 66 20 133/76 (95) 99 10/12/19 00:00 98.5 73 18 122/78 (93) 99 10/11/19 21:00 Room Air 10/11/19 21:00 Room Air 10/11/19 20:00 98.1 73 18 131/79 (96) 98 10/11/19 16:00 98.0 78 20 115/70 (85) 97 10/11/19 12:00 98.4 64 20 131/83 (99) 97 Intake and Output 10/11/19 10/12/19 19:00 07:00 Intake Total 400 ml 150 ml Balance 400 ml 150 ml Intake Oral 400 ml 0 ml IV Total 150 ml # Voids 4 3 General Appearance: no acute distress HEENT: normocephalic Respiratory: chest wall non-tender Cardiovascular: normal peripheral pulses Abdomen: normal bowel sounds Laboratory Tests 10/11/19 12:30: Alpha Fetoprotein [Pending], Hepatitis A IgM Antibody Negative, Hepatitis B Surface Antigen Negative, Hepatitis B Core IgM Antibody Negative, Hepatitis C Antibody >11.0H, HIV (1&2) Antibody Rapid Preliminary positiveH 10/12/19 04:45: White Blood Count [Pending], Red Blood Count 4.45L, Hemoglobin 13.0L, Hematocrit 37.8L, Mean Corpuscular Volume 85, Mean Corpuscular Hemoglobin 29.2, Mean Corpuscular Hemoglobin Concent 34.3, Red Cell Distribution Width 13.8, Platelet Count 148L, Mean Platelet Volume 5.7L, Neutrophils (%) (Auto) 49.1, Lymphocytes (%) (Auto) 36.5, Monocytes (%) (Auto) 10.3H, Eosinophils (%) (Auto) 2.7, Basophils (%) (Auto) 1.5, Lymphocytes [Pending], Sodium Level 138, Potassium Level 4.5, Chloride Level 103, Carbon Dioxide Level 31, Anion Gap 4L, Blood Urea Nitrogen 21H, Creatinine 1.4H, Estimat Glomerular Filtration Rate > 60, Glucose Level 77, Calcium Level 9.4, Percent CD3 Cells [Pending], Absolute CD3 Count [Pending], Percent CD4 Cells [Pending], Absolute CD4 Count [Pending], T-Lymphocyte CD4/CD8 Ratio [Pending], Percent CD8 Cells [Pending], Absolute CD8 Count [Pending] Current Medications Medications (Trade) Dose Ordered Sig/Lia Route PRN Reason Start Time Stop Time Status Last Admin Dose Admin Acetaminophen (Tylenol) 650 mg Q6H PRN ORAL For Headache 10/10/19 04:00 11/09/19 03:59 Acetaminophen (Tylenol) 650 mg Q6H PRN ORAL Temp >100.5 10/10/19 04:00 11/09/19 03:59 Ascorbic Acid (Vitamin C) 500 mg DAILY ORAL 10/10/19 09:00 11/09/19 08:59 10/12/19 08:43 Cyanocobalamin (Vitamin B-12) 500 mcg DAILY ORAL 10/10/19 09:00 11/09/19 08:59 10/12/19 08:44 Dorzolamide HCl (Trusopt) 1 drop TID BOTH EYES 10/10/19 09:00 11/09/19 08:59 10/12/19 08:43 Latanoprost (Xalatan) 1 drop BEDTIME BOTH EYES 10/10/19 21:00 11/09/19 20:59 10/11/19 21:59 Oxandrolone (Oxandrin) 2.5 mg THREE TIMES A DAY ORAL 10/12/19 09:00 01/10/20 08:59 Future Hold Pantoprazole (Protonix) 40 mg DAILY ORAL 10/12/19 09:00 11/11/19 08:59 10/12/19 08:44 Patient Own Medication (Patient's Own Med) 1 ea DAILY ORAL 10/10/19 16:00 11/09/19 15:59 10/12/19 08:43 Patient Own Medication (Patient's Own Med) 1 ea DAILY ORAL 10/10/19 18:00 11/09/19 17:59 10/12/19 08:43 Sodium 1,000 ml @ 50 mls/hr Q20H IV 10/10/19 14:30 11/09/19 14:29 10/12/19 05:34 Vitamin D (Vitamin D) 2,000 intlu DAILY ORAL 10/11/19 09:00 11/10/19 08:59 10/12/19 08:43 Assessment/Plan Assessment/Plan IMPRESSION: 1. Failure to thrive. 2. HIV. 3. Hepatocellular carcinoma. 4. Constipation. DISCUSSION: Reviewed hematology-Oncology consultation as well as GI. Continue current medications and care. Provide IV hydration and diet. I will follow carefully. MRI abd noted Calorie count Appetite stimulants Dc planning Javier Garcia Omar Syed MD October 12, 2019 09:12
[2019-10-12] MEDS ORDERED: NovoLOG Insulin Flexpen SUBQ SCH (11:30)
[2019-10-12 12:00] VITALS: BP 140/77
[2019-10-12 16:00] VITALS: BP 134/82
[2019-10-12 20:00] VITALS: BP 118/73
[2019-10-12] MEDS: Latanoprost 0.005% Opth 2.5ml Soln BOTH EYES SCH (22:35)
[2019-10-13] VITALS: BP 111/63
[2019-10-13] MEDS: 1/2NS w/KCl 20mEq 1000ml 1,000 ML IV SCH (00:47)
[2019-10-13 04:00] VITALS: BP 115/68
--- NOTE | 2019-10-13 06:46 | General Progress Note ---
Assessment/Plan Assessment/Plan: Assessment - Failure to thrive, poor po, weight loss - HIV (+), need to check CD4 count to stage immune state - Hepatocellular CA since 2016, s/p microwave ablation 09/2016 with initial good response - Recent rise in AFP to 1080 in September 2019 at [facility], c/w recurrence of tumor - h/o chronic hep C, genotype 1a, s/p eradication 2015, but with ultimate cirrhotic change with Metavir F2-F4 fibrosis Recommendations - Oncology opinion re HCC - appetite stimulant - check T cells - push po -MRI and CT reviewed - PPI Subjective ROS Limited/Unobtainable: Yes Allergies: Coded Allergies: No Known Allergies (Unverified , 10/10/19) Objective Last 24 Hour Vital Signs Date Time Temp Pulse Resp B/P (MAP) Pulse Ox O2 Delivery O2 Flow Rate FiO2 10/13/19 04:00 98.7 77 18 115/68 (84) 95 10/13/19 00:00 98.1 70 18 111/63 (79) 98 10/12/19 21:00 Room Air 10/12/19 20:00 98.1 90 16 118/73 (88) 98 10/12/19 16:00 97.6 87 19 134/82 (99) 92 10/12/19 12:00 98.1 75 20 140/77 (98) 99 10/12/19 09:00 Room Air 10/12/19 08:00 97.0 81 21 130/83 (99) 99 Intake and Output 10/12/19 10/13/19 19:00 07:00 Intake Total 500 ml 0 ml Balance 500 ml 0 ml Intake Oral 500 ml 0 ml # Voids 6 # Bowel Movements 1 1 Height (Feet): 5 Height (Inches): 3.00 Weight (Pounds): 106 General Appearance: no apparent distress EENT: normal ENT inspection Neck: supple Cardiovascular: regular rhythm Respiratory/Chest: decreased breath sounds Abdomen: normal bowel sounds, non tender, soft Extremities: non-tender Patricio Jeter MD October 13, 2019 06:46
--- NOTE | 2019-10-13 07:25 | Hematology/Onc Progress Note ---
Assessment/Plan Assessment/Plan Assessment and Recs # Hepatocellular carcinoma -- with a increasing afp recently --> obtain outside medical information in re to patients hcc --> obtain imaging of the abd to confirm the mass --> AFP ordered, results pending --> 10/10 mri abd: 3.7 x 3.4 x 3.5 cm lesion in the right hepatic lobe, segment 7 , # Failure to thrive in adult --> likely due to ocmination of malignancy and potential rx --> r/o infectious etiology --> nutritional support --> again needs outpatient management of malignancy, has had significant weight loss recently # Leukopenia very likely related to liver involvement related to Hep c and hiv --> hep panel hep C++ --> prelim-hiv positive --> imaging abd reviewed # HIV as per id # Hep C outpatient care # Anemia of chronic disease --> hgb currently stable # Dvt ppx scds The timing of this note does not necessarily reflect the time of the patient was seen. Greatly appreciate consultation. Subjective Allergies: Coded Allergies: No Known Allergies (Unverified , 10/10/19) Subjective 10/11 alert, mri abd reviewed, room air, labs reviewed 10/12 no overnight events, labs pending, room air Objective Objective Current Medications Medications (Trade) Dose Ordered Sig/Lia Route PRN Reason Start Time Stop Time Status Last Admin Dose Admin Acetaminophen (Tylenol) 650 mg Q6H PRN ORAL For Headache 10/10/19 04:00 11/09/19 03:59 Acetaminophen (Tylenol) 650 mg Q6H PRN ORAL Temp >100.5 10/10/19 04:00 11/09/19 03:59 Ascorbic Acid (Vitamin C) 500 mg DAILY ORAL 10/10/19 09:00 11/09/19 08:59 10/12/19 08:43 Cyanocobalamin (Vitamin B-12) 500 mcg DAILY ORAL 10/10/19 09:00 11/09/19 08:59 10/12/19 08:44 Dorzolamide HCl (Trusopt) 1 drop TID BOTH EYES 10/10/19 09:00 11/09/19 08:59 10/12/19 14:15 Latanoprost (Xalatan) 1 drop BEDTIME BOTH EYES 10/10/19 21:00 11/09/19 20:59 10/12/19 22:35 Oxandrolone (Oxandrin) 2.5 mg THREE TIMES A DAY ORAL 10/12/19 09:00 01/10/20 08:59 Future Hold Pantoprazole (Protonix) 40 mg DAILY ORAL 10/12/19 09:00 11/11/19 08:59 10/12/19 08:44 Patient Own Medication (Patient's Own Med) 1 ea DAILY ORAL 10/10/19 16:00 11/09/19 15:59 10/12/19 08:43 Patient Own Medication (Patient's Own Med) 1 ea DAILY ORAL 10/10/19 18:00 11/09/19 17:59 10/12/19 08:43 Sodium 1,000 ml @ 50 mls/hr Q20H IV 10/10/19 14:30 11/09/19 14:29 10/13/19 00:47 Vitamin D (Vitamin D) 2,000 intlu DAILY ORAL 10/11/19 09:00 11/10/19 08:59 10/12/19 08:43 Last 24 Hour Vital Signs Date Time Temp Pulse Resp B/P (MAP) Pulse Ox O2 Delivery O2 Flow Rate FiO2 10/13/19 04:00 98.7 77 18 115/68 (84) 95 10/13/19 00:00 98.1 70 18 111/63 (79) 98 10/12/19 21:00 Room Air 10/12/19 20:00 98.1 90 16 118/73 (88) 98 10/12/19 16:00 97.6 87 19 134/82 (99) 92 10/12/19 12:00 98.1 75 20 140/77 (98) 99 10/12/19 09:00 Room Air 10/12/19 08:00 97.0 81 21 130/83 (99) 99 10/12/19 04:00 98.0 66 20 133/76 (95) 99 10/12/19 00:00 98.5 73 18 122/78 (93) 99 10/11/19 21:00 Room Air 10/11/19 21:00 Room Air 10/11/19 20:00 98.1 73 18 131/79 (96) 98 10/11/19 16:00 98.0 78 20 115/70 (85) 97 10/11/19 12:00 98.4 64 20 131/83 (99) 97 10/11/19 09:00 Room Air 10/11/19 08:00 98.1 65 20 121/77 (92) 97 Intake and Output 10/12/19 10/13/19 19:00 07:00 Intake Total 500 ml 0 ml Balance 500 ml 0 ml Intake Oral 500 ml 0 ml # Voids 6 4 # Bowel Movements 1 2 Labs Test 10/11/19 00:00 10/11/19 12:30 10/12/19 04:45 Alpha Fetoprotein 1755.0 ng/mL (0.0-8.3) Hepatitis A IgM Antibody Negative (Negative) Hepatitis B Surface Antigen Negative (Negative) Hepatitis B Core IgM Antibody Negative (Negative) Hepatitis C Antibody >11.0 s/co ratio HIV (1&2) Antibody Rapid Preliminary positive White Blood Count 4.0 K/UL (4.8-10.8) Red Blood Count 4.45 M/UL (4.70-6.10) Hemoglobin 13.0 G/DL (14.2-18.0) Hematocrit 37.8 % (42.0-52.0) Mean Corpuscular Volume 85 FL (80-99) Mean Corpuscular Hemoglobin 29.2 PG (27.0-31.0) Mean Corpuscular Hemoglobin Concent 34.3 G/DL (32.0-36.0) Red Cell Distribution Width 13.8 % (11.6-14.8) Platelet Count 148 K/UL (150-450) Mean Platelet Volume 5.7 FL (6.5-10.1) Neutrophils (%) (Auto) 49.1 % (45.0-75.0) Lymphocytes (%) (Auto) 36.5 % (20.0-45.0) Monocytes (%) (Auto) 10.3 % (1.0-10.0) Eosinophils (%) (Auto) 2.7 % (0.0-3.0) Basophils (%) (Auto) 1.5 % (0.0-2.0) Sodium Level 138 MMOL/L (136-145) Potassium Level 4.5 MMOL/L (3.5-5.1) Chloride Level 103 MMOL/L (98-107) Carbon Dioxide Level 31 MMOL/L (21-32) Anion Gap 4 mmol/L (5-15) Blood Urea Nitrogen 21 mg/dL (7-18) Creatinine 1.4 MG/DL (0.55-1.30) Estimat Glomerular Filtration Rate > 60 mL/min (>60) Glucose Level 77 MG/DL (74-106) Calcium Level 9.4 MG/DL (8.5-10.1) Height (Feet): 5 Height (Inches): 3.00 Weight (Pounds): 106 Objective Physical Exam: Vitals: reviewed General: NAD HEENT: nc, at Neck: supple Chest: clear breath sounds bilaterally Cardiovascular: RRR, no s3, s4 Abdomen: soft, nontender, nd Extremities: no cce, normal range of motion Neuro: alert and oriented Romaine Erickson MD October 13, 2019 07:25
--- NOTE | 2019-10-13 07:40 | Pulmonology Progress Note ---
Subjective ROS Limited/Unobtainable: Yes Interval Events: Feeling better Constitutional: Reports: no symptoms HEENT: Repors: no symptoms Respiratory: Reports: no symptoms Cardiovascular: Reports: no symptoms Gastrointestinal/Abdominal: Reports: no symptoms Allergies: Coded Allergies: No Known Allergies (Unverified , 10/10/19) Objective Last 24 Hour Vital Signs Date Time Temp Pulse Resp B/P (MAP) Pulse Ox O2 Delivery O2 Flow Rate FiO2 10/13/19 04:00 98.7 77 18 115/68 (84) 95 10/13/19 00:00 98.1 70 18 111/63 (79) 98 10/12/19 21:00 Room Air 10/12/19 20:00 98.1 90 16 118/73 (88) 98 10/12/19 16:00 97.6 87 19 134/82 (99) 92 10/12/19 12:00 98.1 75 20 140/77 (98) 99 10/12/19 09:00 Room Air 10/12/19 08:00 97.0 81 21 130/83 (99) 99 Intake and Output 10/12/19 10/13/19 19:00 07:00 Intake Total 500 ml 0 ml Balance 500 ml 0 ml Intake Oral 500 ml 0 ml # Voids 6 4 # Bowel Movements 1 2 General Appearance: no acute distress HEENT: normocephalic Respiratory: chest wall non-tender Cardiovascular: normal peripheral pulses Abdomen: normal bowel sounds Microbiology Date/Time Source Procedure Growth Status 10/11/19 12:30 Blood Blood Culture - Preliminary NO GROWTH AFTER 24 HOURS Resulted Current Medications Medications (Trade) Dose Ordered Sig/Lia Route PRN Reason Start Time Stop Time Status Last Admin Dose Admin Acetaminophen (Tylenol) 650 mg Q6H PRN ORAL For Headache 10/10/19 04:00 11/09/19 03:59 Acetaminophen (Tylenol) 650 mg Q6H PRN ORAL Temp >100.5 10/10/19 04:00 11/09/19 03:59 Ascorbic Acid (Vitamin C) 500 mg DAILY ORAL 10/10/19 09:00 11/09/19 08:59 10/12/19 08:43 Cyanocobalamin (Vitamin B-12) 500 mcg DAILY ORAL 10/10/19 09:00 11/09/19 08:59 10/12/19 08:44 Dorzolamide HCl (Trusopt) 1 drop TID BOTH EYES 10/10/19 09:00 11/09/19 08:59 10/12/19 14:15 Latanoprost (Xalatan) 1 drop BEDTIME BOTH EYES 10/10/19 21:00 11/09/19 20:59 10/12/19 22:35 Oxandrolone (Oxandrin) 2.5 mg THREE TIMES A DAY ORAL 10/12/19 09:00 01/10/20 08:59 Future Hold Pantoprazole (Protonix) 40 mg DAILY ORAL 10/12/19 09:00 11/11/19 08:59 10/12/19 08:44 Patient Own Medication (Patient's Own Med) 1 ea DAILY ORAL 10/10/19 16:00 11/09/19 15:59 10/12/19 08:43 Patient Own Medication (Patient's Own Med) 1 ea DAILY ORAL 10/10/19 18:00 11/09/19 17:59 10/12/19 08:43 Sodium 1,000 ml @ 50 mls/hr Q20H IV 10/10/19 14:30 11/09/19 14:29 10/13/19 00:47 Vitamin D (Vitamin D) 2,000 intlu DAILY ORAL 10/11/19 09:00 11/10/19 08:59 10/12/19 08:43 Assessment/Plan Assessment/Plan IMPRESSION: 1. Failure to thrive. 2. HIV. 3. Hepatocellular carcinoma. 4. Constipation. DISCUSSION: Reviewed hematology-Oncology consultation as well as GI. Continue current medications and care. Provide IV hydration and diet. I will follow carefully. MRI abd noted Calorie count Appetite stimulants Dc home Efrem Pelaez M.D. Efrem Pelaez MD October 13, 2019 07:40
[2019-10-13 08:00] VITALS: BP 132/95
[2019-10-13] MEDS: DOLUTEGRAVIR SODIUM 50 MG ORAL SCH (09:10)
[2019-10-13] MEDS: Dorzolamide 2% 10ml Btl BOTH EYES SCH ×2 (09:10→13:00)
[2019-10-13] MEDS: DESCOVY 200MG/25MG ORAL SCH (09:10)
[2019-10-13] MEDS: Ascorbic Acid 500mg tab ORAL SCH (09:11)
[2019-10-13] MEDS: Vitamin B-12 500mcg tab ORAL SCH (09:11)
[2019-10-13] MEDS: Vitamin D 1000 IU Tab ORAL SCH (09:11)
[2019-10-13 12:00] VITALS: BP 110/65
--- NOTE | 2019-10-14 11:30 | Consultation ---
DATE OF CONSULTATION: 10/11/2019 GASTROENTEROLOGY CONSULTATION CHIEF COMPLAINT: I was asked to see this patient by Dr. Efrem Pelaez for evaluation of failure to thrive. HISTORY OF PRESENT ILLNESS: The patient is a pleasant 74-year-old man. He was brought to the hospital due to weight loss and failure to thrive. The patient states that he has a history of HIV for many years. He has been lost to followup and is apparently off of his HIV medication. His T-cell count unclear and he is hypoxic. He also has a known history of hepatocellular carcinoma and this was diagnosed in 2016 at [facility]. He underwent microwave ablation in September 2016 with good tumor response. However, in late [id number] his alpha fetoprotein level was risen and recently he had an alpha fetoprotein just over 1000 suggestive of recurrent tumor. His followup has been questionable. He has had a 15-pound weight loss and he states he has poor appetite, although he denies any vomiting or abdominal pain. PAST MEDICAL HISTORY: History of HIV positivity, history of hepatocellular carcinoma, history of hepatitis C, genotype 1a, which was in 2016. However, he did have a METAVIR fibrosis score of F2-4 indicating cirrhotic change. FAMILY HISTORY: Noncontributory. SOCIAL HISTORY: The patient does not drink alcohol, but does use marijuana. REVIEW OF SYSTEMS: Otherwise negative. MEDICATIONS: Noted. PHYSICAL EXAMINATION: GENERAL: A thin man, seen in his room. HEENT: Normocephalic and atraumatic. Sclerae anicteric. Oropharynx clear. NECK: Supple. CHEST: Clear to auscultation. CARDIOVASCULAR: Revealed regular rate. ABDOMEN: Soft. EXTREMITIES: Revealed no edema. LABORATORY DATA: Noted. ASSESSMENT: This patient has a combination of three significant medical problems, which include HIV positivity, history of cirrhosis, and hepatocellular carcinoma. He has a rising level of alpha fetoprotein just over 1000 suggestive of tumor recurrence, which would be one of the major contributors to anorexia and weight loss. His HIV disease, especially poorly-controlled and untreated, can contribute to this as well. His cirrhosis itself also causes some degree of functional decline. The patient is to be placed on appetite stimulants, which can be started today. He should be able to take his oral intake. Oncology consultation has been noted. The patient's CD4 count should be checked to evaluate his immune status with respect to his disease. RECOMMENDATIONS: Per above discussion and per orders written in the chart. Thank you for asking me to participate in the care of this patient. Sherley Powell M.D. DR: ED JOB#: [id number] CC: JOSE F
--- NOTE | 2019-10-14 12:20 | Discharge Summary ---
Discharge Summary Discharge Summary _ DATE OF ADMISSION: 10/10/2019 DATE OF DISCHARGE: 10/13/2019 DISCHARGED BY: Dr. Pelaez REASON FOR ADMISSION: 74 years old male with past medical history of HIV, hepatocellular carcinoma, not on any medications, presented with chief complaint of generalized weakness and hypoxia. Patient also reported weight loss of 11 pounds in the last week. Patient was seen by his primary care provider and was noted to be hypoxic. Patient was advised to come to emergency room for further evaluation. Upon evaluation pulse oximetry was 97% on room air. Patient was afebrile. CT scan of the chest ,abdomen, and pelvis revealed liver mas,s but no evidence of pulmonary metastasis. No pulmonary embolism. Large colonic fecal burden noted. Laboratory work-up revealed WBC 4.3 ,hemoglobin 12.9, hematocrit 38.5 ,platelet count 151. BUN 19, creatinine 1.5. AST 47, ALT 24. Alpha-fetoprotein 1755. Albumin 3.6. Patient was admitted for further evaluation and management. CONSULTANTS: ID specialist Dr. Garg GI specialist Dr. Jeter systems architecture analyst/oncologist Dr. Erickson HOSPITAL COURSE: Patient admitted to the hospital and started on the IV hydration. Hematology/oncology and GI consult requested. Blood cultures were negative. T cell subset revealed CD4 count 224. Hepatitis panel revealed evidence of hepatitis C. Pain management was addressed. Bowel regimen instituted. MRI of the abdomen revealed right hepatic lobe lesion, correlated with the finding on recent CT scan. Another nonenhancing extrahepatic lesion immediately adjacent to this was noted. No evidence of biliary ductal dilatation, filling defects or gallstones. Patient was diagnosed with hepatocellular carcinoma in 2016 and undergone ablation in September 2016 , with initial good response. However recent rise in alpha-fetoprotein at [facility] to 1080 was consistent with recurrence of tumor. Alpha fetoprotein increased to 1755 on this admission. Patient also had a history of chronic hepatitis C with genotype 1a, status post eradication 2016 ; however he has ultimate cirrhotic changes. Calorie count implemented Patient started on appetite stimulants. Oral fluids were pushed. Patient started on PPI. Bowel regimen instituted. Nutritional supplements provided as per registered clinical dietitian recommendation. Patient was kept off antibiotic, no fever no leukocytosis no evidence of infection. Blood culture came back negative. Supportive care provided. Patient clinically stabilized and was ready for discharge home with outpatient follow-up with a primary care provider, oncologist and GI specialist. FINAL DIAGNOSES: Failure to thrive with poor oral intake and weight loss HIV status/CD4 224 Hepatocellular carcinoma , since 2017 , status post ablation 2017 with initial good response Recent rise in AFP , consistent with recurrence of tumor Chronic hepatitis C Constipation DISCHARGE MEDICATIONS: See Medication Reconciliation list. DISCHARGE INSTRUCTIONS: Patient was discharged home. Follow-up with a primary care provider, GI specialist, and neurologist. I have been assigned to dictate discharge summary for this account. I was not involved in the patient's management. Liza Day NP Oct 14, 2019 12:20
== END 2019-10-13 14:30 | disposition home or self-care (01) | DRG 641 ==
LOC: EMR 02:20 → 3E 02:57
DX: E86.0 Dehydration (principal); C22.0 Liver cell carcinoma; Z68.1 Body mass index [BMI] 19.9 or less, adult; R62.7 Adult failure to thrive; K59.00 Constipation, unspecified; B18.2 Chronic viral hepatitis C; D63.8 Anemia in other chronic diseases classified elsewhere; R09.02 Hypoxemia
CPT/HCPCS: 36415; 71260; 74177; 74183; 80048; 80053; 82105; 85025; 86360; 86689; 86703; 86705; 86709; 86803; 87040; 87340; 99285; A9585; J1815

== ENCOUNTER 2019-10-27 12:00 | Inpatient (IN) | payer MEDICARE, MEDICAID ==
[~2019-10-27] VITALS: Ht 170.2 cm; Wt 48.6 kg
[~2019-10-27 12:00] MED LIST changes: +COMPLERA TABLE1 EACH ORAL; +FERROUS SULFAT325 MG ORAL; +TIVICAY50 MG ORAL; +VITAMIN B-12500 MC2 PO; +VITAMIN C500 M1 ORAL; +VITAMIN D32400 UNIT/ PO
--- NOTE | 2019-10-27 12:19 | NUR ---
ED Nurse Note: PT walked in to ed with walking stick for C/O eye pain to righ eye x 4 days ago. 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 pt HAS hx of glaucoma
[2019-10-27 12:20] VITALS: BP 160/114
--- NOTE | 2019-10-27 12:25 | NUR ---
ED Nurse Note: Report given to yudith quiñones RN
--- NOTE | 2019-10-27 12:28 | Emergency Room Report ---
History of Present Illness General Chief Complaint: Eye Problems Source: Patient Present Illness HPI Patient is a 74-year-old male presents after increased right-sided eye pain and decreased vision. Patient had recent visit to the hospital for hepatocellular carcinoma. Recently been hospitalized and noticed difficulty with seeing out of the right eye for the past 4 days. Said gradually worsened over time. Eye had become increasingly painful. Patient not been having any nausea or vomiting. Reports having prior history of glaucoma.Patient denies any other current complaints. Allergies: Coded Allergies: No Known Allergies (Unverified , 10/10/19) COVID-19 Screening Contact w/high risk pt: No Recent Travel to affected area: No Experienced COVID-19 symptoms?: No COVID-19 Testing performed FRYER LINE HELPER: No Patient History Past Medical History: see triage record Reviewed Nursing Documentation: PMH: Agreed; PSxH: Agreed Nursing Documentation-PMH Hx Cardiac Problems: No - HIV + Hx Hypertension: No Hx Pacemaker: No Hx Asthma: No Hx COPD: No Hx Diabetes: No Hx Cancer: Yes - liver Hx Gastrointestinal Problems: Yes Hx Dialysis: No Hx Neurological Problems: No Hx Cerebrovascular Accident: No Hx Seizures: No Review of Systems All Other Systems: negative except mentioned in HPI Physical Exam Vital Signs Date Time Temp Pulse Resp B/P (MAP) Pulse Ox O2 Delivery O2 Flow Rate FiO2 10/27/19 12:09 98.6 103 16 159/114 (129) 100 Room Air Sp02 EP Interpretation: reviewed, normal General Appearance: normal inspection, well appearing, cachetic, Chronically Ill Head: atraumatic Eyes: right eye fluoroscene uptake - slight diffuse, no focal dye uptake; left eye other - postsurgical changes, hazyness to cornea on right able to see shadows minimal light perception, left eye corneal opacity ENT: normal ENT inspection, hearing grossly normal, normal voice Neck: normal inspection, full range of motion, supple, no bony tend Respiratory: normal inspection, lungs clear, normal breath sounds, no respiratory distress, no retraction, no wheezing Cardiovascular #1: regular rate, rhythm, no edema Gastrointestinal: normal inspection, normal bowel sounds, non tender, soft, no guarding, no hernia Genitourinary: no CVA tenderness Musculoskeletal: normal inspection, back normal, normal range of motion Neurologic: alert, motor strength/tone normal, oriented x3, responsive, speech normal, normal inspection Psychiatric: normal inspection, judgement/insight normal, mood/affect normal Medical Decision Making Diagnostic Impression: Primary Impression: Decreased vision in both eyes Additional Impressions: HIV disease Hepatocellular carcinoma ER Course Patient presented for decreased vision in both eyes. Differential diagnosis include was not limited to glaucoma, CMV retinitis, endophthalmitis among others. Because of complexity of patient's case laboratory tests and imaging studies were ordered. Patient was noted to have prior history of HIV as well as liver cancer. He is taking medications for glaucoma. Intraocular pressure was tested was noted to be approximately 10. Patient does not have visual acuity greater than light perception in the right eye. Patient is currently unable to take care of himself due to decreased vision. Patient will be hospitalized for further evaluation and treatment.CT of the orbit was ordered to evaluate for possible foreign body due to reported recent loss of vision. Patient was given topical antibiotics due to some slight discharge to the right eye. Intraocular pressure was noted to be approximately 10 measured by Chris- Pen. Fluorescein eye exam showed no evidence of localized fluorescein dye uptake. Patient will likely require admission to to loss of vision and inability to care for himself. Patient was endorsed to Dr. Alvarado pending insurance authorization. Labs Test 10/27/19 13:20 White Blood Count 6.7 K/UL (4.8-10.8) Red Blood Count 4.20 M/UL (4.70-6.10) Hemoglobin 12.2 G/DL (14.2-18.0) Hematocrit 39.3 % (42.0-52.0) Mean Corpuscular Volume 94 FL (80-99) Mean Corpuscular Hemoglobin 29.1 PG (27.0-31.0) Mean Corpuscular Hemoglobin Concent 31.0 G/DL (32.0-36.0) Red Cell Distribution Width 15.2 % (11.6-14.8) Platelet Count 220 K/UL (150-450) Mean Platelet Volume 5.5 FL (6.5-10.1) Neutrophils (%) (Auto) 70.1 % (45.0-75.0) Lymphocytes (%) (Auto) 17.2 % (20.0-45.0) Monocytes (%) (Auto) 10.7 % (1.0-10.0) Eosinophils (%) (Auto) 0.8 % (0.0-3.0) Basophils (%) (Auto) 1.2 % (0.0-2.0) Last Vital Signs Date Time Temp Pulse Resp B/P (MAP) Pulse Ox O2 Delivery O2 Flow Rate FiO2 10/27/19 12:20 98.6 84 16 160/114 100 Room Air Status: unchanged Disposition: ADMITTED INPATIENT Condition: Stable Jared Reina MD Oct 27, 2019 12:28
[2019-10-27] MEDS ORDERED: Tetracaine 0.5% Opth 4ml Soln RIGHT EYE ONE (12:30)
[2019-10-27] MEDS ORDERED: Fluorescein Strips RIGHT EYE ONE (12:30)
--- NOTE | 2019-10-27 13:48 | NUR ---
ED Nurse Note: pt is blind to bilateral eye but no option to select, there for it says 20/200 on visual acuity at this time.
--- NOTE | 2019-10-27 14:00 | NUR ---
ED Nurse Note:pt. went to CT scan
[2019-10-27 14:01] LABS: BASOPHILS % (AUTO) 1.2 % (0.0-2.0); EOSINOPHILS % (AUTO) 0.8 % (0.0-3.0); HEMATOCRIT 39.3 % (42.0-52.0); HEMOGLOBIN 12.2 G/DL (14.2-18.0); LYMPHOCYTES % (AUTO) 17.2 % (20.0-45.0); MEAN CORPUSCULAR VOLUME 94 FL (80-99); MONOCYTES % (AUTO) 10.7 % (1.0-10.0); NEUTROPHILS % (AUTO) 70.1 % (45.0-75.0); PLATELET COUNT 220 K/UL (150-450); RED CELL DISTRIBUTION WIDTH 15.2 % (11.6-14.8); WHITE BLOOD COUNT 6.7 K/UL (4.8-10.8)
[2019-10-27 14:21] LABS: ANION GAP 7 mmol/L (5-15); BLOOD UREA NITROGEN 11 mg/dL (7-18); CALCIUM 9.9 MG/DL (8.5-10.1); CARBON DIOXIDE 33 MMOL/L (21-32); CHLORIDE 99 MMOL/L (98-107); POTASSIUM 3.5 MMOL/L (3.5-5.1); SODIUM 139 MMOL/L (136-145)
[2019-10-27 14:26] LABS: ALANINE AMINOTRANSFERASE 21 U/L (12-78); ALBUMIN 3.6 G/DL (3.4-5.0); ALBUMIN/GLOBULIN RATIO 0.6 (1.0-2.7); ALKALINE PHOSPHATASE 81 U/L (46-116); ASPARTATE AMINO TRANSFERASE 27 U/L (15-37); BILIRUBIN,TOTAL 0.5 MG/DL (0.2-1.0)
--- NOTE | 2019-10-27 14:49 | Diagnostic Imaging Report ---
EXAM: CT Orbits Without Intravenous Contrast CLINICAL HISTORY: Patient is a 74-year-old male presents after increased right-sided eye pain and decreased vision. Patient had recent visit to the hospital for hepatocellular carcinoma. Recently been hospitalized and noticed difficulty with seeing out of the right eye for the past 4 days. Said gradually worsened over time. Eye had become increasingly painful. Patient not been having any nausea or vomiting. Reports having prior history of glaucoma.Patient denies any other current complaints. TECHNIQUE: Axial computed tomography images of the orbits without intravenous contrast. CTDI is 15.3 mGy and DLP is 200.7 mGy-cm. One or more of the following dose reduction techniques were used: automated exposure control, adjustment of the mA and/or kV according to patient size, use of iterative reconstruction technique. COMPARISON: None FINDINGS: Orbits: Right lens implant. Globes are otherwise grossly unremarkable. Please see below. Sinuses: Unremarkable. No air-fluid levels. Auditory system: Cerumen in the external auditory canals. Bones/joints: Old fracture deformity of the right lamina papyracea. Old fracture deformity of the right zygomatic arch. Soft tissues: Right periorbital soft tissue swelling and fat stranding which may represent cellulitis. No significant post-septal inflammatory change. IMPRESSION: Right periorbital soft tissue swelling and fat stranding which may represent cellulitis. No significant post-septal inflammatory change.
[2019-10-27] MEDS ORDERED: Ciprofloxacin Opth Soln 5ml BOTH EYES ONE (15:00)
--- NOTE | 2019-10-27 15:21 | NUR ---
ED Nurse Note:given eye drops and provided with meal
[2019-10-27 17:32] VITALS: BP 143/85
--- NOTE | 2019-10-27 18:00 | NUR ---
ED Nurse Note:called report to 3 ade, pt. taken up stairs
[2019-10-27 18:30] VITALS: BP 146/86
--- NOTE | 2019-10-27 19:30 | NUR ---
NURSE NOTES: Received report from Ayesha NERI. Rounding is done. Patient is asleep. No distress on RA noted at this time. IV site is intact and patent. Bed is on alarm, locked, and lowest position. Call light within reach. Will continue to monitor.
[2019-10-27 20:00] VITALS: BP 135/78
--- NOTE | 2019-10-27 20:26 | NUR ---
NURSE NOTES: Called to Dr. Pelaez regarding admission order and left message.
[2019-10-27] MEDS: Latanoprost 0.005% Opth 2.5ml Soln BOTH EYES SCH (23:08)
[2019-10-27] MEDS: Dorzolamide 2% 10ml Btl BOTH EYES SCH (23:08)
[2019-10-28] VITALS: BP 118/66
[2019-10-28 04:00] VITALS: BP 114/74
--- NOTE | 2019-10-28 07:35 | NUR ---
HAND-OFF: Report given to Corrina NERI. Patient in stable condition.
[2019-10-28 08:00] VITALS: BP 129/83
--- NOTE | 2019-10-28 08:05 | NUR ---
NURSE NOTES: Received report from Isabel RN, pt awake with no s/s of distress on RA pt eating breakfast, denies any pain at this time, pt has a L AC 20G locked, bed in low locked position, side rails upX2 call light with in reach and necessities , will continue to monitor
[2019-10-28] MEDS ORDERED: Dolutegravir Sodium 50mg tab ORAL SCH (09:00)
[2019-10-28] MEDS: Dorzolamide 2% 10ml Btl BOTH EYES SCH ×3 (09:06→17:43)
[2019-10-28] MEDS: Ciprofloxacin Opth Soln 5ml BOTH EYES SCH (09:06)
[2019-10-28] MEDS: Ascorbic Acid 500mg tab ORAL SCH (09:06)
[2019-10-28] MEDS: Vitamin D 1000 IU Tab ORAL SCH (09:07)
[2019-10-28] MEDS: Vitamin B-12 500mcg tab ORAL SCH (09:07)
[2019-10-28 12:00] VITALS: BP 120/71
--- NOTE | 2019-10-28 12:15 | NUR ---
RD ASSESSMENT & RECOMMENDATIONS SEE CARE ACTIVITY FOR COMPLETE ASSESSMENT DAILY ESTIMATED NEEDS: Needs based on Underweight, HIV, CA/ 50kg 30-40 kcals/kg 5917-8470 total kcals 1-2 g protein/kg 50-100 g total protein 25-30 mL/kg 5821-2687 total fluid mLs NUTRITION DIAGNOSIS: Increased kcal/prot intake needs R/T underweight status, recent wt loss, catabolic dx as evidenced by low BMI of 17.3, pt @ 74% IBW, recent significant wt loss of 16lbs/ 12.7% in 1 month as per pt's report, h/o HIV and hepatocellular carcinoma. CURRENT DIET:REGULAR, soft easy chew PO DIET RECOMMENDATIONS: Liberalized REGULAR + Ensure Enlive TID w/ meals ADDITIONAL RECOMMENDATIONS: * Calibrated bedscale wt on 10/1020=[id number], pt is 5' 7" -currently on a bed without bedscale, obtain standing weight * Ensure Enlive TID w/ meals added (350kcal/20g prot each) * Monitor PO tolerance and acceptance closely -> pt is legally blind, assist w/ meals as needed -> monitor need for texture modification
--- NOTE | 2019-10-28 13:24 | NUR ---
*-* INSURANCE *-* ALL AVAILABLE CLINICALS HAVE BEEN FAXED TO: [facility] NATALIA/CLARITA AUTH#[id number] P:[phone] F:[phone]
--- NOTE | 2019-10-28 13:25 | NUR ---
Social Work This SW received a consult due to home safety evaluation. Patient lives alone and has been going blind. This sW met with patient who confirms that he has been alone, but able to manage in his own home due to already having familiarity. Patient explains he has two friends, Stevan ([phone]) and Glenn will be coming over daily to assist, as needed (will transport as needed and assist with groceries). This SW recommended SNF or Assisted Living, while patient declined placement at this time. Home Health to follow as needed. This SW provided Assisted Living placement contacts when patient is ready to leave his apartment (has an elevator), along with [facility] [employer] (per his request) and [facility], In home supportive services contact information. His friends will remain his support and caregivers, upon discharge. Addendum: 10/28/19 at 1333 by RAMONA HAMEED Addendum: Patient remains independent with ambulation and does not require any DME at this time.
[2019-10-28] MEDS: Vancomycin 750mg/NS 275ml IVPB SCH ×2 (14:23)
[2019-10-28 16:00] VITALS: BP 125/76
--- NOTE | 2019-10-28 16:44 | NUR ---
CASE MANAGEMENT: INITIAL REVIEW 74YR OLD MALE WALKED IN FROM HOME CC: EYE PROBLEMS SI:BILATERAL DECREASE VISION . HEPATOCELLULAR CARCINOMA . HIV 98.6 103 16 159/114 100% ON RA IS:FLUORESCEIN OD X1 TETRACAINE OD X1 CILOXAN OU X1 IVF NS BOLUS X1 CT ORBITS- Right periorbital soft tissue swelling and fat stranding which may represent cellulitis. No significant post-septal inflammatory change. \: [facility] DCP: HOME WHEN STABLE EVAL FOR SNF CASE MANAGEMENT: REVIEW 10/28/19 SI:BILATERAL DECREASE VISION . HEPATOCELLULAR CARCINOMA . HIV 98.6 103 16 159/114 100% ON RA IS:IV VANCOMYCIN Q24/HR FEOSOL PO QD CIPRO OU QD TRUSOPT OU TID \: 3E MED SURG UNIT DCP: HOME WHEN STABLE EVAL FOR SNF PLAN: ID CONSULT CMV PCR QUANTITATIVE -IN PROCESS PATIENT REFUSED SNF WANTING TO DC HOME WITH FAMILY AND HOME HEALTH
--- NOTE | 2019-10-28 17:00 | Consultation ---
DATE OF CONSULTATION: 10/28/2019 INFECTIOUS DISEASES CONSULTATION CONSULTING PHYSICIAN: Gianni Garg MD. REFERRING PHYSICIAN: Efrem Pelaez MD. REASON FOR CONSULTATION: HIV and possible CMV retinitis. HISTORY OF PRESENTING ILLNESS: This is a 74-year-old gentleman with history of HIV with unknown T-cell count and viral load. States he is on HIV medications, who comes in with right-sided eye pain and decreased vision. He also has a hepatocellular carcinoma. An Infectious Diseases consultation has been obtained for antibiotics. PAST MEDICAL HISTORY: 1. History of HIV. 2. History of hepatocellular carcinoma. SOCIAL HISTORY: He used to be a smoker. He does not smoke anymore. He drinks alcohol socially. He smokes marijuana. FAMILY HISTORY: Positive for heart disease in his mother, cancer in his father. REVIEW OF SYSTEMS: RESPIRATORY: No fever, chills, cough, shortness of breath or chest pain. CARDIAC: No chest pain. No palpitation. No dizziness. No syncope. GASTROINTESTINAL: No nausea. No vomiting. No abdominal pain or diarrhea. MUSCULOSKELETAL: He complains of right eye pain and difficulty with vision. MEDICATIONS: As an inpatient, he is on ascorbic acid, , ferrous sulfate, vitamin D, cyanocobalamin, ciprofloxacin eye drops, Trusopt, Xalatan, Tylenol. ALLERGIES: No known drug allergies. PHYSICAL EXAMINATION: VITAL SIGNS: Temperature of 98.8, T-max of 98.8, pulse of 78, respiratory rate 18, blood pressure 129/83, O2 saturation of 99% on room air. HEENT: Unable to examine his eyes due to pain. NECK: Supple. No adenopathy. No JVD. CARDIOVASCULAR: Regular rate and rhythm. No murmurs. LUNGS: Clear to auscultation bilaterally. No crackles. No wheezes. ABDOMEN: Soft, nontender. No organomegaly. EXTREMITIES: No cyanosis, no clubbing, no edema. LABORATORY AND DIAGNOSTIC DATA: White count 6.7, hemoglobin 12.2, hematocrit 39.3, MCV 94, platelet count of 220,000 with neutrophils of 70%. Sodium 139, potassium 3.5, chloride 99, bicarb 33, BUN 11, creatinine 1, glucose 82, calcium 9.9. Total bilirubin 0.5. AST 27, ALT 21, alkaline phosphatase 81. Total protein 9.5. Albumin 3.6. CT head showing right periorbital soft tissue swelling and fat stranding, which may represent cellulitis. ASSESSMENT: This is a 74-year-old gentleman with history of HIV, unknown T-cell count on antiretrovirals, who comes in with right-sided eye pain, would be concerned regardin. CMV retinitis. 2. He also has right-sided periorbital cellulitis. 3. Hepatocellular carcinoma. PLAN: 1. We will order CMV PCR. 2. Would suggest an Ophthalmology evaluation. 3. We will start the patient on IV vancomycin. 4. We will follow up the patient clinically. I would like to thank, Dr. Pelaez, for this consultation. Gianni Garg M.D. DR: CARLTON JOB#: [id number] CC: Efrem Pelaez MD.; Fax#: [phone]
--- NOTE | 2019-10-28 17:15 | History and Physical Report ---
DATE OF ADMISSION: 10/27/2019 HISTORY OF PRESENT ILLNESS: This is a 74-year-old male with a history of bilateral glaucoma and predominant vision loss in the left eye who presented with now sudden increase in difficulty with visual acuity in the right eye. The patient also has history of hepatocellular carcinoma. He also is noted to be HIV positive on medications. He also reports eye is painful. PAST MEDICAL HISTORY: Notable for HIV positivity, liver cancer. No other cardiac issues noted. HOME MEDICATIONS: Reviewed and reconciled in chart. ALLERGIES: None. CODE STATUS: Full. REVIEW OF SYSTEMS: Denies any headaches, hematemesis, melena, hematochezia, night sweats, or weight loss. PHYSICAL EXAMINATION: GENERAL: Reveals a 74-year-old male. VITAL SIGNS: Blood pressure is 130/60, heart rate 84, respirations 18, afebrile. HEENT: Unremarkable. He has very poor vision in both eyes and has light perception only. CHEST: Clear breath sounds bilaterally. ABDOMEN: Soft. EXTREMITIES: There is no edema. NEUROLOGIC: Otherwise nonfocal. LABORATORY DATA: Lab testing shows hemoglobin 12, otherwise normal CBC and BMP. IMAGING STUDIES: Head and orbit CT was obtained, which shows right periorbital soft tissue swelling and fat, which may represent cellulitis. IMPRESSION: 1. Right eye vision loss. 2. History of glaucoma with bilateral vision loss. 3. HIV. 4. Hepatocellular carcinoma. DISCUSSION: Admit to the hospital. We will attempt to contact Ophthalmology. The patient will need placement as he is currently blind, unable take care of himself. Placement request and social work specialist request. We will follow. Efrem Pelaez M.D. DR: Milo JOB#: [id number] CC:
--- NOTE | 2019-10-28 19:30 | NUR ---
NURSE NOTES: Received report from Aparna NERI. Rounding is done. Patient is a/o x4. Denied any pain at this time. No distress on RA noted at this time. IV site is intact and patent. Bed is on alarm, locked, and lowest position. Call light within reach. Will continue to monitor.
[2019-10-28 20:00] VITALS: BP 134/80
--- NOTE | 2019-10-28 20:08 | NUR ---
HAND-OFF: Report given to Isabel RN, pt stable.
[2019-10-28] MEDS: Latanoprost 0.005% Opth 2.5ml Soln BOTH EYES SCH (21:00)
[2019-10-29] VITALS: BP 135/86
[2019-10-29 04:00] VITALS: BP 132/84
--- NOTE | 2019-10-29 07:08 | NUR ---
HAND-OFF: Report given to Aparna NERI. Patient in stable condition.
--- NOTE | 2019-10-29 07:10 | NUR ---
NURSE NOTES: Received report from Isabel RN, rounds made pt awake with no s/s of distress on RA pt eating breakfast, denies any pain at this time, pt has a L AC 20G with IVF, KVO , bed in low locked position, side rails upX2 call light with in reach and necessities , will continue to monitor
[2019-10-29 08:00] VITALS: BP 150/85
[2019-10-29] MEDS: Ascorbic Acid 500mg tab ORAL SCH (09:04)
[2019-10-29] MEDS: Vitamin B-12 500mcg tab ORAL SCH (09:05)
[2019-10-29] MEDS: Dorzolamide 2% 10ml Btl BOTH EYES SCH ×3 (09:05→17:28)
[2019-10-29] MEDS: Vitamin D 1000 IU Tab ORAL SCH (09:05)
[2019-10-29] MEDS: Ciprofloxacin Opth Soln 5ml BOTH EYES SCH (09:05)
--- NOTE | 2019-10-29 10:55 | Pulmonology Progress Note ---
Subjective Interval Events: None new Constitutional: Reports: no symptoms HEENT: Repors: no symptoms Respiratory: Reports: no symptoms Cardiovascular: Reports: no symptoms Gastrointestinal/Abdominal: Reports: no symptoms Allergies: Coded Allergies: No Known Allergies (Unverified , 10/10/19) Objective Last 24 Hour Vital Signs Date Time Temp Pulse Resp B/P (MAP) Pulse Ox O2 Delivery O2 Flow Rate FiO2 10/29/19 09:00 Room Air 10/29/19 08:00 97.5 84 20 150/85 (106) 98 10/29/19 04:00 98.6 79 16 132/84 (100) 97 10/29/19 00:00 98.8 77 18 135/86 (102) 97 10/28/19 21:00 Room Air 10/28/19 20:00 98.4 81 16 134/80 (98) 98 10/28/19 16:00 98.1 76 18 125/76 (92) 99 10/28/19 12:00 98.9 74 19 120/71 (87) 100 Intake and Output 10/28/19 10/29/19 19:00 07:00 Intake Total 1000 ml 360 ml Output Total 1200 ml Balance 1000 ml -840 ml Intake Oral 360 ml Other 1000 ml Output Urine Total 1200 ml # Voids 3 # Bowel Movements 1 General Appearance: no acute distress HEENT: normocephalic Respiratory: chest wall non-tender Cardiovascular: normal peripheral pulses Abdomen: normal bowel sounds Laboratory Tests 10/28/19 12:50: White Blood Count [Pending], Lymphocytes [Pending], Percent CD3 Cells [Pending] , Absolute CD3 Count [Pending], Percent CD4 Cells [Pending], Absolute CD4 Count [Pending], T-Lymphocyte CD4/CD8 Ratio [Pending], Percent CD8 Cells [Pending], Absolute CD8 Count [Pending] 10/29/19 04:55: Cytomegalovirus DNA PCR copies/ml [Pending], Cytomegalovirus DNA PCR log10 [ Pending] Current Medications Medications (Trade) Dose Ordered Sig/Lia Route PRN Reason Start Time Stop Time Status Last Admin Dose Admin Acetaminophen (Tylenol) 650 mg Q6H PRN ORAL For Headache 10/27/19 22:15 11/26/19 22:14 10/28/19 14:39 Ascorbic Acid (Vitamin C) 500 mg DAILY ORAL 10/28/19 09:00 11/27/19 08:59 10/29/19 09:04 Ciprofloxacin (Ciloxan Opth Soln) 1 drop DAILY BOTH EYES 10/28/19 09:00 11/04/19 08:59 10/29/19 09:05 Cyanocobalamin (Vitamin B-12) 500 mcg DAILY ORAL 10/28/19 09:00 11/27/19 08:59 10/29/19 09:05 Dolutegravir Sodium (Tivicay) 50 mg DAILY ORAL 10/28/19 09:00 01/26/20 08:59 UNV Dorzolamide HCl (Trusopt) 1 drop TID BOTH EYES 10/27/19 23:00 11/26/19 22:59 10/29/19 09:05 Ferrous Sulfate (Feosol) 325 mg DAILY ORAL 10/28/19 09:00 01/26/20 08:59 10/29/19 09:04 Latanoprost (Xalatan) 1 drop BEDTIME BOTH EYES 10/27/19 23:00 11/26/19 22:59 10/28/19 21:00 Non-Formulary Medication (Non-Formulary Med) 1 ea DAILY ORAL 10/28/19 09:00 11/27/19 08:59 UNV Vancomycin HCl (Vanco pharmacy to dose) 1 ea DAILY PRN MISC Per rx protocol 10/28/19 11:30 11/27/19 11:29 Vancomycin HCl 750 mg/Sodium Chloride 275 ml @ 183.333 mls/hr Q24H IVPB 10/28/19 13:00 11/02/19 12:59 10/28/19 14:23 Vitamin D (Vitamin D) 1,000 intlu DAILY ORAL 10/28/19 09:00 11/27/19 08:59 10/29/19 09:05 Assessment/Plan Assessment/Plan IMPRESSION: 1. Right eye vision loss. 2. History of glaucoma with bilateral vision loss. 3. HIV. 4. Hepatocellular carcinoma. DISCUSSION: SHOAIB notes reviewed Unable to provide ophthalmology consult in house Will dc home with friends as identified by SHOAIB patient agreeable outpt ophthalmology eval Javier Garcia Omar Syed MD Oct 29, 2019 10:55
--- NOTE | 2019-10-29 11:07 | Infectious Diseases Prog Note ---
Assessment/Plan Assessment/Plan antibiotics : vancomycin iv, ARV A 1. r/o CMV retinitis 2. HIV 3. hepatocellular carcinoma 4. glaucoma 5. right eye blindness P 1. continue iv vancomycin in hospital 2. continue ARV 3. ophthalmology evaluation as an out patient planned 4. d/w Dr Pelaez Subjective Constitutional: Denies: fever, chills Respiratory: Denies: shortness of breath, dry cough Gastrointestinal/Abdominal: Denies: nausea, vomiting, diarrhea Musculoskeletal: Reports: pain - in right eye Allergies: Coded Allergies: No Known Allergies (Unverified , 10/10/19) Objective Vital Signs Last 24 Hour Vital Signs Date Time Temp Pulse Resp B/P (MAP) Pulse Ox O2 Delivery O2 Flow Rate FiO2 10/29/19 09:00 Room Air 10/29/19 08:00 97.5 84 20 150/85 (106) 98 10/29/19 04:00 98.6 79 16 132/84 (100) 97 10/29/19 00:00 98.8 77 18 135/86 (102) 97 10/28/19 21:00 Room Air 10/28/19 20:00 98.4 81 16 134/80 (98) 98 10/28/19 16:00 98.1 76 18 125/76 (92) 99 10/28/19 12:00 98.9 74 19 120/71 (87) 100 Height (Feet): 5 Height (Inches): 7.00 Weight (Pounds): 102 Respiratory/Chest: lungs clear Cardiovascular: normal rate, regular rhythm, no gallop/murmur Abdomen: soft, non tender Extremities: no edema Laboratory Tests Test 10/28/19 12:50 10/29/19 04:55 White Blood Count Pending Lymphocytes Pending Percent CD3 Cells Pending Absolute CD3 Count Pending Percent CD4 Cells Pending Absolute CD4 Count Pending T-Lymphocyte CD4/CD8 Ratio Pending Percent CD8 Cells Pending Absolute CD8 Count Pending Cytomegalovirus DNA PCR copies/ml Pending Cytomegalovirus DNA PCR log10 Pending Current Medications Medications (Trade) Dose Ordered Sig/Lia Route PRN Reason Start Time Stop Time Status Last Admin Dose Admin Acetaminophen (Tylenol) 650 mg Q6H PRN ORAL For Headache 10/27/19 22:15 11/26/19 22:14 10/28/19 14:39 Ascorbic Acid (Vitamin C) 500 mg DAILY ORAL 10/28/19 09:00 11/27/19 08:59 10/29/19 09:04 Ciprofloxacin (Ciloxan Opth Soln) 1 drop DAILY BOTH EYES 10/28/19 09:00 11/04/19 08:59 10/29/19 09:05 Cyanocobalamin (Vitamin B-12) 500 mcg DAILY ORAL 10/28/19 09:00 11/27/19 08:59 10/29/19 09:05 Dolutegravir Sodium (Tivicay) 50 mg DAILY ORAL 10/28/19 09:00 01/26/20 08:59 UNV Dorzolamide HCl (Trusopt) 1 drop TID BOTH EYES 10/27/19 23:00 11/26/19 22:59 10/29/19 09:05 Ferrous Sulfate (Feosol) 325 mg DAILY ORAL 10/28/19 09:00 01/26/20 08:59 10/29/19 09:04 Latanoprost (Xalatan) 1 drop BEDTIME BOTH EYES 10/27/19 23:00 11/26/19 22:59 10/28/19 21:00 Non-Formulary Medication (Non-Formulary Med) 1 ea DAILY ORAL 10/28/19 09:00 11/27/19 08:59 UNV Vancomycin HCl (Vanco pharmacy to dose) 1 ea DAILY PRN MISC Per rx protocol 10/28/19 11:30 11/27/19 11:29 Vancomycin HCl 750 mg/Sodium Chloride 275 ml @ 183.333 mls/hr Q24H IVPB 10/28/19 13:00 11/02/19 12:59 10/28/19 14:23 Vitamin D (Vitamin D) 1,000 intlu DAILY ORAL 10/28/19 09:00 11/27/19 08:59 10/29/19 09:05 Gianni Garg MD Oct 29, 2019 11:07
[2019-10-29 12:00] VITALS: BP 143/72
[2019-10-29] MEDS: Vancomycin 750mg/NS 275ml IVPB SCH ×2 (12:24)
--- NOTE | 2019-10-29 14:37 | NUR ---
CASE MANAGEMENT: REVIEW 10/29/19 SI:BILATERAL DECREASE VISION . HEPATOCELLULAR CARCINOMA . HIV 98.1 79 20 143/72 98% ON RA IS:IV VANCOMYCIN Q24/HR FEOSOL PO QD CIPRO OU QD TRUSOPT OU TID \: 3E MED SURG UNIT DCP: HOME WHEN STABLE PLAN: ANTICIPATED DC IN AM WITH HOME HEALTH CMV PENDING MEDICAL INTERN OUTPATIENT
--- NOTE | 2019-10-29 15:26 | NUR ---
*-* INSURANCE *-* ALL AVAILABLE CLINICALS HAVE BEEN FAXED TO: [facility] AUTH#[id number] P:[phone] F:[phone]
[2019-10-29 16:00] VITALS: BP 148/78
--- NOTE | 2019-10-29 19:30 | NUR ---
HAND-OFF: Report given to Jeannette bonilla.
--- NOTE | 2019-10-29 19:54 | NUR ---
NURSES NOTE: Rounds made with HALLE Barrera. Pt in bed, sleeping, awakens to name. Breathing is even and unlabored on RA. No s/s of distress noted. Patient denies pain currently. IV, R H, 24 gauge hep locked. All due meds will be given. Bed at lowest level, call light within reach. Pt will continue to be monitored.
[2019-10-29 20:00] VITALS: BP 141/104
[2019-10-29] MEDS: Latanoprost 0.005% Opth 2.5ml Soln BOTH EYES SCH (22:14)
--- NOTE | 2019-10-30 07:50 | NUR ---
NURSE NOTES: pt is sitting up in the bed eating his breakfast; tolerates meal well. bedside table within reach, no clutter in room. bright lights in room. place call light within reach, will continue to follow plan of care.
--- NOTE | 2019-10-30 07:50 | NUR ---
HAND OFF: Report given to HALLE Hansen. Pt stable.
[2019-10-30 08:00] VITALS: BP 153/74
[2019-10-30] MEDS: Ascorbic Acid 500mg tab ORAL SCH (08:27)
[2019-10-30] MEDS: Vitamin D 1000 IU Tab ORAL SCH (08:27)
[2019-10-30] MEDS: Vitamin B-12 500mcg tab ORAL SCH (08:27)
[2019-10-30] MEDS: Dorzolamide 2% 10ml Btl BOTH EYES SCH ×2 (08:37→13:00)
[2019-10-30] MEDS: Ciprofloxacin Opth Soln 5ml BOTH EYES SCH (08:37)
--- NOTE | 2019-10-30 10:12 | Pulmonology Progress Note ---
Subjective Interval Events: None new Constitutional: Denies: fever, chills HEENT: Repors: no symptoms Respiratory: Reports: no symptoms Cardiovascular: Reports: no symptoms Gastrointestinal/Abdominal: Denies: nausea, vomiting, diarrhea Musculoskeletal: Reports: pain - in right eye Allergies: Coded Allergies: No Known Allergies (Unverified , 10/10/19) Objective Last 24 Hour Vital Signs Date Time Temp Pulse Resp B/P (MAP) Pulse Ox O2 Delivery O2 Flow Rate FiO2 10/30/19 09:00 Room Air 10/30/19 08:00 98.1 69 18 153/74 (100) 95 10/29/19 21:00 Room Air 10/29/19 20:00 97.4 96 20 141/104 (116) 96 10/29/19 16:00 98.5 79 20 148/78 (101) 98 10/29/19 12:00 98.1 79 20 143/72 (95) 98 Intake and Output 10/29/19 10/30/19 19:00 07:00 Intake Total 480 ml Output Total 900 ml Balance -900 ml 480 ml Intake Oral 480 ml Output Urine Total 900 ml # Voids 3 General Appearance: no acute distress HEENT: normocephalic Respiratory: chest wall non-tender Cardiovascular: normal peripheral pulses Abdomen: normal bowel sounds Current Medications Medications (Trade) Dose Ordered Sig/Lia Route PRN Reason Start Time Stop Time Status Last Admin Dose Admin Acetaminophen (Tylenol) 650 mg Q6H PRN ORAL For Headache 10/27/19 22:15 11/26/19 22:14 10/30/19 08:28 Ascorbic Acid (Vitamin C) 500 mg DAILY ORAL 10/28/19 09:00 11/27/19 08:59 10/30/19 08:27 Ciprofloxacin (Ciloxan Opth Soln) 1 drop DAILY BOTH EYES 10/28/19 09:00 11/04/19 08:59 10/30/19 08:37 Cyanocobalamin (Vitamin B-12) 500 mcg DAILY ORAL 10/28/19 09:00 11/27/19 08:59 10/30/19 08:27 Dolutegravir Sodium (Tivicay) 50 mg DAILY ORAL 10/28/19 09:00 01/26/20 08:59 UNV Dorzolamide HCl (Trusopt) 1 drop TID BOTH EYES 10/27/19 23:00 11/26/19 22:59 10/30/19 08:37 Ferrous Sulfate (Feosol) 325 mg DAILY ORAL 10/28/19 09:00 01/26/20 08:59 10/30/19 08:28 Latanoprost (Xalatan) 1 drop BEDTIME BOTH EYES 10/27/19 23:00 11/26/19 22:59 10/29/19 22:14 Non-Formulary Medication (Non-Formulary Med) 1 ea DAILY ORAL 10/28/19 09:00 11/27/19 08:59 UNV Vancomycin HCl (Vanco pharmacy to dose) 1 ea DAILY PRN MISC Per rx protocol 10/28/19 11:30 11/27/19 11:29 Vancomycin HCl 750 mg/Sodium Chloride 275 ml @ 183.333 mls/hr Q24H IVPB 10/28/19 13:00 11/02/19 12:59 10/29/19 12:24 Vitamin D (Vitamin D) 1,000 intlu DAILY ORAL 10/28/19 09:00 11/27/19 08:59 10/30/19 08:27 Assessment/Plan Assessment/Plan IMPRESSION: 1. Right eye vision loss. 2. AIDS 4. Hepatocellular carcinoma. DISCUSSION: SW notes reviewed Unable to provide ophthalmology consult in house Will dc home with friends as identified by SW patient agreeable outpt ophthalmology eval Javier Garcia Omar Syed MD Oct 30, 2019 10:12
--- NOTE | 2019-10-30 11:05 | Infectious Diseases Prog Note ---
Assessment/Plan Assessment/Plan antibiotics : vancomycin iv, ARV A 1. r/o CMV retinitis 2. HIV 3. hepatocellular carcinoma 4. glaucoma 5. right eye blindness P 1. d/c iv vancomycin 2. continue ARV 3. ophthalmology evaluation as an out patient planned Subjective Constitutional: Denies: fever, chills Respiratory: Denies: shortness of breath, dry cough Gastrointestinal/Abdominal: Denies: nausea, vomiting, diarrhea Musculoskeletal: Reports: pain - in right eye Allergies: Coded Allergies: No Known Allergies (Unverified , 10/10/19) Objective Vital Signs Last 24 Hour Vital Signs Date Time Temp Pulse Resp B/P (MAP) Pulse Ox O2 Delivery O2 Flow Rate FiO2 10/30/19 09:00 Room Air 10/30/19 08:00 98.1 69 18 153/74 (100) 95 10/29/19 21:00 Room Air 10/29/19 20:00 97.4 96 20 141/104 (116) 96 10/29/19 16:00 98.5 79 20 148/78 (101) 98 10/29/19 12:00 98.1 79 20 143/72 (95) 98 Height (Feet): 5 Height (Inches): 7.00 Weight (Pounds): 107 Respiratory/Chest: lungs clear Cardiovascular: normal rate, regular rhythm, no gallop/murmur Abdomen: soft, non tender Extremities: no edema Current Medications Medications (Trade) Dose Ordered Sig/Lia Route PRN Reason Start Time Stop Time Status Last Admin Dose Admin Acetaminophen (Tylenol) 650 mg Q6H PRN ORAL For Headache 10/27/19 22:15 11/26/19 22:14 10/30/19 08:28 Ascorbic Acid (Vitamin C) 500 mg DAILY ORAL 10/28/19 09:00 11/27/19 08:59 10/30/19 08:27 Ciprofloxacin (Ciloxan Opth Soln) 1 drop DAILY BOTH EYES 10/28/19 09:00 11/04/19 08:59 10/30/19 08:37 Cyanocobalamin (Vitamin B-12) 500 mcg DAILY ORAL 10/28/19 09:00 11/27/19 08:59 10/30/19 08:27 Dolutegravir Sodium (Tivicay) 50 mg DAILY ORAL 10/28/19 09:00 01/26/20 08:59 UNV Dorzolamide HCl (Trusopt) 1 drop TID BOTH EYES 10/27/19 23:00 11/26/19 22:59 10/30/19 08:37 Ferrous Sulfate (Feosol) 325 mg DAILY ORAL 10/28/19 09:00 01/26/20 08:59 10/30/19 08:28 Latanoprost (Xalatan) 1 drop BEDTIME BOTH EYES 10/27/19 23:00 11/26/19 22:59 10/29/19 22:14 Non-Formulary Medication (Non-Formulary Med) 1 ea DAILY ORAL 10/28/19 09:00 11/27/19 08:59 UNV Vancomycin HCl (Vanco pharmacy to dose) 1 ea DAILY PRN MISC Per rx protocol 10/28/19 11:30 11/27/19 11:29 Vancomycin HCl 750 mg/Sodium Chloride 275 ml @ 183.333 mls/hr Q24H IVPB 10/28/19 13:00 11/02/19 12:59 10/29/19 12:24 Vitamin D (Vitamin D) 1,000 intlu DAILY ORAL 10/28/19 09:00 11/27/19 08:59 10/30/19 08:27 Gianni Garg MD Oct 30, 2019 11:05
--- NOTE | 2019-10-30 11:45 | NUR ---
NURSE NOTES: pt will be discharged home after eating lunch. Discharge process done. Patient is awake. A&O X4, pt has poor vision and is high risk for fall. safety precaution provided at all time. no clutter in room. floor is clean and dry. Respiration is even and unlabored on room air. Belongings checked; pt unable to sign due to poor vision. Skin is clear and intact. Patient is provided with after-care instructions, provided medication teaching, and instructed to follow-up with any MD's appointment; patient verbalized understanding of after-care instructions. IV site and wrist band removed.
--- NOTE | 2019-10-30 11:49 | NUR ---
*-* INSURANCE *-* UPDATED CLINICALS HAVE BEEN FAXED TO: [facility] AUTH#[id number] P:[phone] F:[phone]
[2019-10-30 12:00] VITALS: BP 140/71
--- NOTE | 2019-10-30 12:42 | NUR ---
HAND-OFF: Report given to HALLE Heck to take over care.
--- NOTE | 2019-10-30 12:43 | NUR ---
NURSE NOTES: Received patient from Tyrone NERI, patient is for discharge waiting for taxi. RN called the taxi company and dispatch #[id number] said they are not accepting taxi voucher under account but andrade. home restoration service cleaner double checked. RN informed household chores and GARY Martinez. Will follow up. Patient is stable. Denies any pain or discomfort. Will continue to monitor.
--- NOTE | 2019-10-30 12:54 | CDS Physician Query ---
Clarification is required for compliance, coding accuracy, and to reflect severity of illness for this patient Dear Dr. Efrem Pelaez Date: 10/30/2019 Nurse Healthcare Manager/CDS Name: Kaleigh Chavez Clinical Documentation: HNP: 74-year-old male with a history of bilateral glaucoma and predominant vision loss in the left eye who presented with now sudden increase in difficulty with visual acuity in the right eye. The patient also has history of hepatocellular carcinoma. He also is noted to be HIV positive on medications. ED: General Appearance: normal inspection, well appearing, cachetic, Chronically Ill BMI 16.8 Please select the most appropriate option: [] Protein/Calorie Malnutrition [] Mild [] Moderate [] Severe [] Hypoalbuminemia [] Underweight [] Intestinal malabsorption [] Other [] Unable to determine [] Not Applicable Present on Admission: [] Yes [] No [] Clinically Undetermined Physician signature Date Please also document in your Progress Notes and/or Discharge Summary and indicate if the condition was present on admission. MTDD
--- NOTE | 2019-10-30 13:22 | NUR ---
DISCHARGE PLANNED PATIENT HAS DECLINED SNF PLACEMENT AND WOULD LIKE TO REMAIN AT HOME DISCHARGE SERVICES PROVIDED BY INSURANCE GARY WERNER TO F/U WITH PATIENT T:[phone] [facility] TO FIND HOME [facility]SP[facility] HOME PROVIDED BY [facility] [employer] T: [phone] OPT #2 TRIP CONFIRMATION # [id number]
--- NOTE | 2019-10-30 13:30 | NUR ---
NURSE NOTES: Patient is scheduled for orange picker machine operator @16:15pm. Informed patient.
[2019-10-30] MEDS ORDERED: Tubing IV Secondary IV ONE (16:24)
[2019-10-30] MEDS ORDERED: NS 275ml ONE (16:24)
--- NOTE | 2019-10-30 16:26 | NUR ---
NURSE NOTES: Discharged the patient home via access (transportation) in stable condition. Patient denies pain or discomfort prior to discharge. discharge instruction given by previous nurse. skin is intact. No Iv, ID was removed. all belongings accounted for and patient brought all his belongings. Staff escorted patient to the car.
--- NOTE | 2019-10-31 13:37 | Discharge Summary ---
Discharge Summary Discharge Summary _ DATE OF ADMISSION: 10/27/2019 DATE OF DISCHARGE: 10/30/2019 DISCHARGED BY: Dr. Pelaez REASON FOR ADMISSION: 74 years old male with history of bilateral glaucoma and predominant vision loss in the left eye , presented with now sudden increase in difficulty with visual acuity in the right eye. Patient also had a history of hepatocellular carcinoma and HIV positive. Patient reported increasingly painful right eye over the past 4 days. He denied nausea and vomiting. No headaches. Upon evaluation vital signs were stable. Laboratory work-up revealed no leukocytosis, hemoglobin 12.2 ,hematocrit 39.3. CT scan of the head and the orbits revealed right periorbital soft tissue swelling and fat stranding , possibly representing cellulitis. No significant post septal inflammatory change. Patient admitted to medical surgical floor for further management CONSULTANTS: ID specialist Dr. Garg HOSPITAL COURSE: Patient admitted to medical surgical floor. Attempts were made to obtain ophthalmology evaluation while in the hospital, unfortunately unsuccessful Patient started on IV antibiotic as per ID specialist recommendation . Antiretroviral therapy continued. CD4 count 303. While in the hospital patient was on the IV vancomycin, which discontinued prior to discharge. Patient will need to see ductfixing plumber as outpatient to rule out cytomegalovirus retinitis. Eye drops from home continued. Supportive care provided. Fall precautions maintained. Patient clinically stabilized and was ready for discharge home. Outpatient follow-up with ductfixing plumber within 1 week. FINAL DIAGNOSES: Acute right eye vision loss Rule out CMV retinitis Right-sided periorbital cellulitis Glaucoma with bilateral vision loss HIV/AIDS Hepatocellular carcinoma DISCHARGE MEDICATIONS: See Medication Reconciliation list. DISCHARGE INSTRUCTIONS: Patient was discharged home. Follow-up with ductfixing plumber and primary care provider in 1 week . I have been assigned to dictate discharge summary for this account. I was not involved in the patient's management. Liza Day NP Oct 31, 2019 13:36
--- NOTE | 2019-10-31 14:23 | NUR ---
*-* INSURANCE *-* DISCHARGE SUMMARY HAS BEEN FAXED TO: [facility] AUTH#[id number] P:[phone] F:[phone]
== END 2019-10-30 16:25 | disposition home or self-care (01) | DRG 865 ==
LOC: EMR 12:40 → 4E 15:15 → EDBEDREQ 16:39 → 3E 18:22
DX: B25.8 Other cytomegaloviral diseases (principal); E43 Unspecified severe protein-calorie malnutrition; C22.0 Liver cell carcinoma; R64 Cachexia; H30.891 Other chorioretinal inflammations, right eye; Z68.1 Body mass index [BMI] 19.9 or less, adult; L03.213 Periorbital cellulitis; H40.9 Unspecified glaucoma
CPT/HCPCS: 36415; 70480; 80053; 82962; 85025; 86360; 87497; 99285